=== PATIENT | female | born 1990 | race African-American/Black ===

== ENCOUNTER 2018-04-30 02:27 | Emergency (ER) | payer BC, SELFPAY ==
[2018-04-30 02:32] VITALS: BP 129/94; PULSE 82; RESP 18; TEMP 36.4; O2SAT 99
--- NOTE | 2018-04-30 02:56 | ED.GENADUL ---
Disposition Clinical Impression: Groin abscess Disposition: HOME Condition: Good Instructions: Doxycycline (By mouth), Abscess (ED) Additional Instructions: You may use acetaminophen and/or ibuprofen for pain. Warm compresses to help promote drainage. Take antibiotic as directed. Watch for worsening pain, swelling, redness. Follow-up with primary care at end of week if not better. Return to ED if worse. Prescriptions: Doxycycline Hyclate [Vibramycin] 100 mg PO BID #13 cap Referrals: Primary Care Provider [Outside] Medical Decision Making - Medical Decision Making Patient with a superficial abscess with underlying pain and swelling beneath it. Feels more indurated than fluctuant but given the superficial abscess that is obvious, stab incision with an 11 blade was thought necessary to rule out a deep abscess. Procedure explained to patient. Verbal consent obtained. Female nurse present for exam and for procedure. Area was prepped with Betadine and then was anesthetized with 1% lidocaine with epi. Superficial abscess drained with the injection of the lidocaine. Stab incision with minimal pus returned from deep. Wound culture obtained and sent. No packing as this was just a stab incision. Because of the overlying erythema and the induration underneath will go ahead and cover with doxycycline. test obtained and is negative. Follow-up with primary care at the end of week if not better. Return to ED if worse. History of Present Illness - General Chief complaint: RashLesion Stated complaint: UNKNOWN Time Seen by Provider: 04/30/18 02:55 Source: patient Mode of arrival: ambulatory Limitations: no limitations - History of Present Illness Initial comments: Patient presents to the ED with right groin swelling and pain. Patient states that she started to have some discomfort 2 days ago. She noticed a little pimple there yesterday. It has got larger and is quite painful now. She has difficulty walking. She has had no fever. She has no abdominal pain, nausea, vomiting, diarrhea. She has no urinary symptoms. She has no vaginal discharge or bleeding. - Related Data Medroxyprogesterone Acetate [Depo-Provera] 150 mg IM Q 12 WEEKS #1 vial 10/02/17 Doxycycline Hyclate [Vibramycin] 100 mg PO BID #13 cap 04/30/18 Allergies Allergy/AdvReac Type Severity Reaction Status Date / Time No Known Allergies Allergy Unverified 04/30/18 02:31 Review of Systems Constitutional: denies: chills, fever Gastrointestinal: denies: abdominal pain, nausea, vomiting Skin: change in color, other (swelling). denies: lesions Past Medical History - Past Medical History Medical history: no medical history Surgical history: no surgical history - Social History Smoking status: never smoker General Exam - General Limitations: no limitations General appearance: alert, in no apparent distress - Head Head exam: Present: atraumatic, normocephalic - Neck Neck exam: Present: normal inspection - Extremities Exam Extremities exam: Present: normal inspection, full ROM - Neurological Exam Neurological exam: Present: alert, oriented X3, CN II-XII intact. Absent: motor sensory deficit - Skin Skin exam: Present: warm, dry, other (about a 1 cm diameter swelling beneath the skin with a superficial abscess over it. Erythema surrounding it. No lymph nodes elsewhere.) Course Vital Signs - 24 hr 04/30/18 02:32 Temperature 97.5 F L Pulse 82 Respiratory 18 Rate Blood Pressure 129/94 Pulse Oximetry 99 Procedures - Abscess I/D Consent Obtained: Verbal Consent Site: Other (groin) Side (if applicable): Right Local Anesthetic: Lidocaine 1%, With Epi Technique: Incised with #11 Blade Irrigation: Yes Packing used?: None
[2018-04-30] MEDS: Doxycycline Hyclate 100 MG CAP PO (03:04)
--- NOTE | 2018-05-02 06:37 | NUR.NOTE ---
Nursing Note: Received call from lab reporting wound culture + for MRSA. Dr. Lawson notified and pt is already on Doxycycline which will cover it per MD.
== END 2018-04-30 03:08 | disposition home or self-care (01) ==
PROVIDERS: Emergency Provider Emergency Medicine; PCP Nurse Practitioner Family
DX: L02.214 Cutaneous abscess of groin (principal); B95.62 Methicillin resistant Staphylococcus aureus infection as the cause of diseases classified elsewhere
CPT/HCPCS: 10060; 81025; 87077; 87070; 87186; 87205

== ENCOUNTER 2018-05-27 17:51 | Outpatient (REF) | payer BC, SELFPAY | END 2018-05-27 18:11 | LOC: LBN 17:51 | PROVIDERS: PCP Nurse Practitioner Family; Visit Provider Obstetrics & Gynecology Gynecology | DX: N76.4 Abscess of vulva (principal) | CPT/HCPCS: 87070; 87205 ==

== ENCOUNTER 2018-07-02 11:11 | Emergency (ER) | payer BC, SELFPAY ==
[2018-07-02 11:14] VITALS: BP 137/85; PULSE 89; RESP 18; TEMP 36.7; O2SAT 99
[2018-07-02 11:31] LABS: Bilirubin Negative (Negative); Blood Negative (Negative); Clarity Sl Cloudy; Glucose Negative (Negative); Ketones Negative (Negative); Leukocyte Esterase Negative (Negative); Nitrite Negative (Negative); Urobilinogen 0.2 EU/dL (Up TO 0.2)
--- NOTE | 2018-07-02 11:57 | W.ED.GENAD ---
Discharge Plan Disposition Patient Disposition: HOME Discharge Details Chief Complaint: Abd Prob Clinical Impression: Abdominal pain Primary Care Provider: Shirley Willett ED Provider: Will Guillermo Home Meds and New Rx's Prescriptions: New pantoprazole 20 mg tablet,delayed release (DR/EC) 20 mg PO DAILY Qty: 30 RF: 0 No Action medroxyprogesterone [Depo-Provera] 150 MG/1 ML suspension 150 mg IM Q 12 WEEKS Qty: 1 RF: 3 Discharge Instructions Instructions: Abdominal Pain (ED) Additional Instructions: Please contact your primary care physician to arrange follow-up. Return to the ER for any worsening or new concerning symptoms. Referrals: Shirley Willett, ELECTRONIC MASKING SYSTEM OPERATOR [Primary Care Provider] - Medical Decision Making 28-year-old female here with intermittent diffuse abdominal pain worse postprandially over the past 4 days with associated nausea. Had some left sharp abdominal pain last night. Abdominal exam is benign. Patient is well-appearing. Screening labs reviewed and normal LFTs, no leukocytosis, normal electrolytes. Patient was administered Zofran IV as well as Pepcid IV. She was reassessed and noted significant improvement in her symptoms. Given benign exam and lab studies, and also improvement with medication, I suspect benign etiology. I will prescribe a PPI and have her follow-up with her primary care physician. I reviewed usual and customary discharge instructions with the patient and emphasized the importance of timely follow-up with her primary care physician. Patient verbalized understanding of my discharge instructions and of need for timely follow-up. I did encourage her to return immediately should she have any worsening or new concerning symptoms. HPI General Date/Time Provider Initiated Documentation: 07/02/18 11:41. Limitations to Documentation: no limitations. Information obtained by: patient. HPI Narrative: 28-year-old female here with chief complaint of abdominal pain. Patient notes that over the past 4 days she has had postprandial abdominal discomfort about an hour after eating. Pain is described as discomfort. Pain is localized diffusely. Last night she did have some sharp pain in her left upper abdomen that lasted approximately 1 hour and then resolved. She currently has mild discomfort in her diffuse abdomen. She also notes some nausea. No melena or bright red blood per rectum. No urinary symptoms. Related Data Home Medications Medication Instructions Recorded Confirmed medroxyprogesterone [Depo-Provera] 150 mg IM Q 12 WEEKS #1 vial 10/02/17 06/25/18 pantoprazole 20 mg PO DAILY #30 tab 07/02/18 Previous Rx's Medication Instructions Recorded medroxyprogesterone [Depo-Provera] 150 mg IM Q 12 WEEKS #1 vial 10/02/17 pantoprazole 20 mg PO DAILY #30 tab 07/02/18 Allergies Allergy/AdvReac Type Severity Reaction Status Date / Time No Known Allergies Allergy Verified 06/25/18 14:39 General Stated Complaint: Abd Prob CONSUELO: 3 Review of Systems Review of Systems All systems reviewed & are unremarkable except as noted in HPI and below Gastrointestinal Reports as per HPI and Reports abdominal pain Genitourinary Denies dysuria, Denies pelvic pain and Denies vaginal discharge PFSH Female Reproductive History Menstrual control method: progesterone injection (No menses w/depo) Exam Const General: cooperative, healthy appearing, no acute distress and well developed HENMT Head: normocephalic and atraumatic Mouth: moist mucous membranes Eyes Conjunctivae: normal conjunctivae Sclera: normal sclerae EOM: EOM intact bilaterally Neck Neck: trachea midline and supple Resp Auscultation: clear to auscultation bilaterally, no rales, no rhonchi and no wheezes Cardio Jugular venous pressure: no JVD Rate: regular rate and not tachycardic Rhythm: regular rhythm GI Palpation: soft, not firm, no guarding, no hepatosplenomegaly, not rigid and nontender (upper abdomen ) Skin General skin exam: no rashes or lesions noted Neuro General: alert, awake, oriented x3 and tone normal Extrem General: no edema Psych Appearance: grossly normal Mental Status: mental status grossly normal Speech and Movement: speech and movement normal Course Vital Signs Temperature 36.7 C 07/02/18 11:14 Pulse 89 07/02/18 11:14 Respiratory Rate 18 07/02/18 11:14 Blood Pressure 137/85 07/02/18 11:14 Pulse Oximetry 99 07/02/18 11:14 Temperature 36.7 C 07/02/18 11:14 Temperature Source Temporal Artery Scan 07/02/18 11:14 Pulse 89 07/02/18 11:14 Respiratory Rate 18 07/02/18 11:14 Respiratory Effort 07/02/18 11:17 Blood Pressure 137/85 07/02/18 11:14 Blood Pressure Position Sitting 07/02/18 11:14 Pulse Oximetry 99 07/02/18 11:14 Oxygen Delivery Method Room Air 07/02/18 11:14 Oxygen Flow Rate 0 07/02/18 11:14 Pain Level 5 07/02/18 11:14 Lab/Test Results Lab/Test Results: Laboratory Tests Range/Units 07/02/18 11:25 Urine Color (Yellow) Yellow Urine Clarity Sl cloudy Urine pH (5-8) 7.0 Ur Specific [place] (1.005-1.025) 1.020 Urine Protein (Negative) mg/dL Negative Urine Ketones (Negative) mg/dL Negative Urine Blood (Negative) Negative Urine Nitrite (Negative) Negative Urine Bilirubin (Negative) Negative Urine Urobilinogen (Up TO 0.2) EU/dL 0.2 Ur Leukocyte Esterase (Negative) Negative Urine Glucose (Negative) mg/dL Negative POC- Test(urine) Negative
[2018-07-02 12:07] LABS: Abs Immature Grans 0.01 k/cumm (0.0-0.09); Absolute Basophil Count 0.02 k/cumm (0.0-0.2); Absolute Lymphocyte Count 2.54 k/cumm (1.2-3.4); Absolute Monocyte Count 0.66 k/cumm (0.11-0.7); Absolute Neutrophil Count 2.83 k/cumm (1.2-6.7); Basophils % 0.3; Eosinophils % 6.2; HCT 41.3 % (36.0-46.0); HGB 14.2 g/dL (12.0-15.5); Immature Grans % 0.2; Lymphocytes % 39.3; Mean Corp. HGB Concentration 34.4 g/dL (32.0-36.0); Mean Corpuscular Hemoglobin 31.4 pg (27.0-33.0); Mean Corpuscular Volume 91.4 fL (80-95); Mean Platelet Volume 9.4 fL (8.0-11.0); Monocytes % 10.2; Neutrophils % 43.8; Platelet Count 315 x1000/uL (130-400); RBC 4.52 m/cumm (4.00-5.20); RBC Distribution Width 12.3 % (11.7-14.6); White Blood Cell Count 6.46 k/cumm (4.4-10.8)
[2018-07-02] MEDS: FAMOTIDINE 20 MG/50 ML BAG 100 MG IVPB (12:08)
[2018-07-02] MEDS: Ondansetron 4 MG/2 ML VIAL IVP (12:08)
[2018-07-02] MEDS: Lactated Ringers 1,000 ML 1000 ML IV (12:08)
[2018-07-02 12:16] LABS: Lipase 125 U/L (73-393)
[2018-07-02 12:21] LABS: ALT 28 U/L (12-78); AST 18 U/L (15-37); Alkaline Phosphatase 85 U/L (46-116); Anion Gap 10.5 mmol/L (3-11); BUN 8 mg/dL (7-18); Bilirubin, Total 0.5 mg/dL (0.2-1.0); CO2 24.5 mmol/L (21.0-32.0); CREATININE 0.71 mg/dL (0.55-1.02); Calcium 9.8 mg/dL (8.5-10.1); Chloride 104 mmol/L (98-107); Glucose 97 mg/dL (70-100); Potassium 3.9 mmol/L (3.5-5.1); Sodium 139 mmol/L (136-145); Total Protein 8.6 g/dL (6.4-8.2)
--- NOTE | 2018-07-02 15:05 | ED.GENADUL_ITS ---
Discharge Plan Disposition Patient Disposition: HOME Discharge Details Chief Complaint: Abd Prob Clinical Impression: Abdominal pain Primary Care Provider: Shirley Willett ED Provider: Will Guillermo Home Meds and New Rx's Prescriptions: New pantoprazole 20 mg tablet,delayed release (DR/EC) 20 mg PO DAILY Qty: 30 RF: 0 No Action medroxyprogesterone [Depo-Provera] 150 MG/1 ML suspension 150 mg IM Q 12 WEEKS Qty: 1 RF: 3 Discharge Instructions Instructions: Abdominal Pain (ED) Additional Instructions: Please contact your primary care physician to arrange follow-up. Return to the ER for any worsening or new concerning symptoms. Referrals: Shirley Willett, BAKER OPERATOR AUTOMATIC [Primary Care Provider] - Medical Decision Making 28-year-old female here with intermittent diffuse abdominal pain worse postprandially over the past 4 days with associated nausea. Had some left sharp abdominal pain last night. Abdominal exam is benign. Patient is well-appearing. Screening labs reviewed and normal LFTs, no leukocytosis, normal electrolytes. Patient was administered Zofran IV as well as Pepcid IV. She was reassessed and noted significant improvement in her symptoms. Given benign exam and lab studies, and also improvement with medication, I suspect benign etiology. I will prescribe a PPI and have her follow-up with her primary care physician. I reviewed usual and customary discharge instructions with the patient and emphasized the importance of timely follow-up with her primary care physician. Patient verbalized understanding of my discharge instructions and of need for timely follow-up. I did encourage her to return immediately should she have any worsening or new concerning symptoms. HPI General Date/Time Provider Initiated Documentation: 07/02/18 11:41 . Limitations to Documentation: no limitations . Information obtained by: patient . HPI Narrative: 28-year-old female here with chief complaint of abdominal pain. Patient notes that over the past 4 days she has had postprandial abdominal discomfort about an hour after eating. Pain is described as discomfort. Pain is localized diffusely. Last night she did have some sharp pain in her left upper abdomen that lasted approximately 1 hour and then resolved. She currently has mild discomfort in her diffuse abdomen. She also notes some nausea. No melena or bright red blood per rectum. No urinary symptoms. Related Data Home Medications Medication Instructions Recorded Confirmed medroxyprogesterone [Depo-Provera] 150 mg IM Q 12 WEEKS #1 vial 10/02/17 pantoprazole 20 mg PO DAILY #30 tab 07/02/18 Previous Rx's Medication Instructions Recorded medroxyprogesterone [Depo-Provera] 150 mg IM Q 12 WEEKS #1 vial 10/02/17 pantoprazole 20 mg PO DAILY #30 tab 07/02/18 Allergies Allergy/AdvReac Type Severity Reaction Status Date / Time No Known Allergies Allergy Verified 06/25/18 14:39 General Stated Complaint: Abd Prob CONSUELO: 3 Review of Systems Review of Systems All systems reviewed & are unremarkable except as noted in HPI and below Gastrointestinal Reports as per HPI and Reports abdominal pain Genitourinary Denies dysuria, Denies pelvic pain and Denies vaginal discharge PFSH Female Reproductive History Menstrual control method: progesterone injection (No menses w/depo) Exam Const General: cooperative, healthy appearing, no acute distress and well developed HENMT Head: normocephalic and atraumatic Mouth: moist mucous membranes Eyes Conjunctivae: normal conjunctivae Sclera: normal sclerae EOM: EOM intact bilaterally Neck Neck: trachea midline and supple Resp Auscultation: clear to auscultation bilaterally, no rales, no rhonchi and no wheezes Cardio Jugular venous pressure: no JVD Rate: regular rate and not tachycardic Rhythm: regular rhythm GI Palpation: soft, not firm, no guarding, no hepatosplenomegaly, not rigid and nontender (upper abdomen ) Skin General skin exam: no rashes or lesions noted Neuro General: alert, awake, oriented x3 and tone normal Extrem General: no edema Psych Appearance: grossly normal Mental Status: mental status grossly normal Speech and Movement: speech and movement normal Course Vital Signs Temperature 36.7 C 07/02/18 11:14 Pulse 89 07/02/18 11:14 Respiratory Rate 18 07/02/18 11:14 Blood Pressure 137/85 07/02/18 11:14 Pulse Oximetry 99 07/02/18 11:14 Temperature 36.7 C 07/02/18 11:14 Temperature Source Temporal Artery Scan 07/02/18 11:14 Pulse 89 07/02/18 11:14 Respiratory Rate 18 07/02/18 11:14 Respiratory Effort 07/02/18 11:17 Blood Pressure 137/85 07/02/18 11:14 Blood Pressure Position Sitting 07/02/18 11:14 Pulse Oximetry 99 07/02/18 11:14 Oxygen Delivery Method Room Air 07/02/18 11:14 Oxygen Flow Rate 0 07/02/18 11:14 Pain Level 5 07/02/18 11:14 Lab/Test Results Lab/Test Results: Laboratory Tests Range/Units 07/02/18 11:25 Urine Color (Yellow) Yellow Urine Clarity Sl cloudy Urine pH (5-8) 7.0 Ur Specific [place] (1.005-1.025) 1.020 Urine Protein (Negative) mg/dL Negative Urine Ketones (Negative) mg/dL Negative Urine Blood (Negative) Negative Urine Nitrite (Negative) Negative Urine Bilirubin (Negative) Negative Urine Urobilinogen (Up TO 0.2) EU/dL 0.2 Ur Leukocyte Esterase (Negative) Negative Urine Glucose (Negative) mg/dL Negative POC- Test(urine) Negative
[2018-07-02 15:14] VITALS: BP 138/80; PULSE 77; RESP 16; TEMP 36.8; O2SAT 96
== END 2018-07-02 15:16 | disposition home or self-care (01) ==
PROVIDERS: Emergency Provider Student in an Organized Health Care Education/Training Program; PCP Nurse Practitioner Family
DX: R10.12 Left upper quadrant pain (principal); R11.0 Nausea
CPT/HCPCS: 36415; 80053; 81025; 83690; 96361; 96365; 96375; 99284; 81003; 85025; J2405

== ENCOUNTER 2018-12-13 12:18 | Outpatient (REF) | payer BC, SELFPAY ==
--- NOTE | 2018-12-13 11:00 | PAPFT_PTH ---
PATIENT: Meghna Martinez LOC: N [id number]#:[id number] AGE/SX: 28/F ROOM: RE12/13/[address]: MOON Castro : 1990 BED: DIS: 12/13/2018 SPEC #: [id number] RECD: 12/13/18 13:05 STATUS: LISETH REKuldeep #: [id number] JOANNE: 12/13/18 11:[address]: Shirley Willett DEPT: [facility] [place] Cytology RECD BY: Azucena Mars ENTERED: 12/13/18 13:05 SP TYPE: PAPFT [place] DR: None Tissues: 1 - CX/ENDOCX FOR PAP SMEARS Procedures: PAP THIN PREP/UVM Screening Comments: [id number]
== END 2018-12-13 12:38 ==
LOC: LBN 12:18
PROVIDERS: Visit Provider Nurse Practitioner Family
DX: Z12.4 Encounter for screening for malignant neoplasm of cervix (principal)
CPT/HCPCS: 88142

== ENCOUNTER 2019-02-11 14:54 | Outpatient (REF) | payer BC, SELFPAY ==
[2019-02-13 13:18] LABS: Chlamydia Result Negative; GC Result Negative; Specimen Description CERVIX
== END 2019-02-11 15:14 ==
LOC: LBN 14:54
PROVIDERS: Visit Provider Nurse Practitioner Family
DX: R35.0 Frequency of micturition (principal); Z11.3 Encounter for screening for infections with a predominantly sexual mode of transmission
CPT/HCPCS: 87491; 87591; 87086

== ENCOUNTER 2019-05-06 06:49 | Emergency (ER) | payer BC, SELFPAY ==
[2019-05-06 06:53] VITALS: BP 154/99; PULSE 87; TEMP 36.4; O2SAT 100
--- NOTE | 2019-05-06 07:05 | ED.GENADUL_ITS ---
Discharge Plan Disposition Patient Disposition: HOME Condition: Stable Discharge Details Chief Complaint: Dizzy/Sync Clinical Impression: Nausea Primary Care Provider: Marcie Rose ED Provider: Washington Duong Home Meds and New Rx's Prescriptions: New ondansetron 4 mg tablet,disintegrating 4 mg PO Q8H PRN (Reason: nausea and vomiting) Qty: 30 RF: 0 Continued medroxyprogesterone [Depo-Provera] 150 mg/mL suspension 150 mg IM Q 12 WEEKS Qty: 1 RF: 3 zolpidem 5 mg tablet 5 mg PO QHS PRNRF: 0 Discharge Instructions Instructions: Acute Nausea and Vomiting (ED) Additional Instructions: drink fluids to stay hydrated if symptoms continue in 2 days follow up with your primary care on Sunday as scheduled if you feel more ill, have severe abdominal pain, fevers or persistent vomit return to the emergency department Stand Alone Forms: Work Release Medical Decision Making 28 yo female who denies chronic medical problems comes in with nausea. 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 She denies chest pain, sob, abdominal pain, fevers. She has been drinking fluids without difficulty. She is in no distress on exam, negative poc hcg, no abdominal tenderness in any location. she did start zolpidem a month or so ago and feel unlikely this is the cause of her symptoms. i suspect either early gastroenteritis vs food illness and will improve with time. Given lack of abodminal tenderness and reassuring exam otherwise feel unlikely surgical pathology or pancreatitis or other emergent medical process. We did discuss performing labs +/- imaging vs d/c and return if worsening and shared decision making was made to try outpatient management and return if worsening. Differential Diagnosis gastroenteritis, medication side effect, food illness HPI General Mode of arrival: ambulatory . Date/Time Provider Initiated Documentation: 05/06/19 06:52 . Limitations to Documentation: no limitations . Information obtained by: patient . History of Present Illness 28 year old F presents to the emergency department with the chief complaint of nausea, described as moderate, Patient started experiencing this day(s) (1) and it has been constant. No relieving factors improve symptom(s), No exacerbating factors reported . Patient did receive the following treatments prior to arrival, none Related Data Home Medications Medication Instructions Recorded Confirmed medroxyprogesterone 150 mg/mL 150 mg IM Q 12 WEEKS #1 vial 09/20/18 03/14/19 intramuscular suspension zolpidem 5 mg tablet 5 mg PO QHS PRN 12/13/18 03/14/19 ondansetron 4 mg PO Q8H PRN #30 tab 05/06/19 Previous Rx's Medication Instructions Recorded medroxyprogesterone 150 mg/mL 150 mg IM Q 12 WEEKS #1 vial 09/20/18 intramuscular suspension ondansetron 4 mg PO Q8H PRN #30 tab 05/06/19 Allergies Allergy/AdvReac Type Severity Reaction Status Date / Time No Known Allergies Allergy Verified 03/14/19 11:32 General Stated Complaint: Dizzy/Sync CONSUELO: 4 Review of Systems Review of Systems All systems reviewed & are unremarkable except as noted in HPI and below Constitutional Denies chills, Denies fever(s) and Denies weakness Cardiovascular Denies chest pain and Denies dyspnea Respiratory Denies cough and Denies dyspnea Gastrointestinal Denies abdominal pain Integumentary/Breasts Denies rash Neurologic Denies weakness PFSH Social History Smoking/Tobacco Use Status: Never Second Hand Exposure: Yes Alcohol Intake: current Alcohol Intake frequency: a few times a month Drug use: Never Substance use type: does not use Adopted: No Foster care: No Household members: significant other What is your relationship status?: living with partner Panel score (0-1 are the most socially isolated patients): 1 What type of physical activity do you participate in: walking Duration: 30-45 minutes/day Frequency: other Details: 2-3 X MONTH Nesha/Ad[employer]ist: [employer] Seatbelt use: always Do you feel safe at home: Yes Do you feel safe in your relationship?: Yes Female Reproductive History Menstrual control method: progesterone injection (No menses w/depo) History History 0 Para Hx # Term Pregnancies Multiple births Hx # Pregnancies Ectopic pregnancies AB induced Hx Number of Living Children AB spontaneous Exam Const General: no acute distress Orientation: alert HENMT Head: normal to inspection Ears: external ears normal General nose exam: external nose normal Mouth: moist mucous membranes Eyes General: appearance normal, both eyes and all related structures Neck Neck: normal visual inspection Resp Effort & Inspection: normal respiratory effort and able to speak in complete sentences Cardio Rate: regular rate GI Palpation: soft and nontender Skin General skin exam: no rashes or lesions noted Neuro General: alert and oriented x3 Extrem General: normal to inspection Psych Mental Status: mental status grossly normal Course Vital Signs Temperature 36.4 C L 05/06/19 06:53 Pulse 87 05/06/19 06:53 Blood Pressure 154/99 H 05/06/19 06:53 Pulse Oximetry 100 05/06/19 06:53 Temperature 36.4 C L 05/06/19 06:53 Temperature Source Temporal Artery Scan 05/06/19 06:53 Pulse 87 05/06/19 06:53 Blood Pressure 154/99 H 05/06/19 06:53 Blood Pressure Position Sitting 05/06/19 06:53 Pulse Oximetry 100 05/06/19 06:53 Oxygen Delivery Method Room Air 05/06/19 06:53 Oxygen Flow Rate 0 05/06/19 06:53 Pain Level 0 05/06/19 06:53 Lab/Test Results Lab/Test Results: POC- Test(urine) Negative
[2019-05-06 07:13] VITALS: BP 154/99; PULSE 87; RESP 18; TEMP 36.4; O2SAT 100
== END 2019-05-06 07:12 | disposition home or self-care (01) ==
PROVIDERS: Emergency Provider Emergency Medicine; PCP Nurse Practitioner Family
DX: R11.0 Nausea (principal)
CPT/HCPCS: 81025; 99283

== ENCOUNTER 2019-05-11 21:39 | Emergency (ER) | payer BC, SELFPAY ==
[2019-05-11 21:43] VITALS: BP 155/107; PULSE 95; RESP 16; TEMP 36.7; O2SAT 100
--- NOTE | 2019-05-11 21:55 | W.ED.GENAD ---
Discharge Plan Disposition Patient Disposition: HOME Condition: Improving Discharge Details Chief Complaint: Abd Prob Clinical Impression: Vomiting, Abdominal pain Primary Care Provider: Marcie Rose ED Provider: Ximena Bautista Home Meds and New Rx's Prescriptions: Continued medroxyprogesterone [Depo-Provera] 150 mg/mL suspension 150 mg IM Q 12 WEEKS Qty: 1 RF: 3 zolpidem 5 mg tablet 5 mg PO QHS PRNRF: 0 ondansetron 4 mg tablet,disintegrating 4 mg PO Q8H PRN (Reason: nausea and vomiting) Qty: 30 RF: 0 Discharge Instructions Instructions: Acute Nausea and Vomiting (ED), Abdominal Pain (ED) Additional Instructions: Take the zofran that you have at home as needed and directed for nausea or vomiting. Alternate Tylenol and Motrin as needed and directed for pain. Follow-up with your primary care doctor next week for reevaluation. Return immediately to the emergency department with any worsening or new concerning symptoms. Stand Alone Forms: Work Release Discharge Data Discharge Date/Time-TO BE ENTERED AT DEPARTURE: 05/11/19 23:33 Discharge Physician: Ximena Bautista Medical Decision Making 6 -- 28-year-old female with no significant past medical history who presents with abdominal pain and nausea with 3 episodes of vomiting since last week. She was seen here several days ago for the same complaint and had a reassuring exam and had no labs or imaging done at that time and was discharged with Zofran. She presents today with persistent pain. She appears nontoxic. She is afebrile. Her abdomen is soft but tender in the right upper quadrant and across her lower abdomen. No rebound, rigidity or guarding. Differential diagnosis includes gastroenteritis, appendicitis, cholecystitis, ovarian cyst. She has no previous history of abdominal surgeries, so doubt small bowel obstruction. She is only had minimal spotting, so unsure if this is related to her symptoms, but could also include fibroids or endometriosis. As she has only minimal spotting, do not see an indication for pelvic exam. test negative. As this is her second visit within the past week for similar symptoms and she has abdominal tenderness, will place an IV, give bolus IV fluids, dose of Toradol, labs and CT imaging. 5575 --labs and imaging reviewed and unremarkable. Normal white blood cell count, electrolytes, lipase and urinalysis. Patient states she feels much better and feels good to go home. She requested a work note for tonight. She is advised to continue her Zofran as needed. She is advised to follow-up with her primary care doctor for reevaluation and to return here at any time if worse. Medical Records Medical records reviewed: Yes I reviewed the patient's medical records. Imaging Data Radiologic Study: Radiologist's impression: CT Abdomen and Pelvis With Contrast EXAM DATE/TIME: 05/11/2019 10:04 PM CLINICAL HISTORY: 28 years old, female; Localized; Patient HX: Lower abdominal pain; Additional info: R/O appy, allyson, sbo, ovarian cyst TECHNIQUE: Imaging protocol: Computed tomography of the abdo d pelvis with intravenous contrast. Radiation optimization: All CT scans at this facility use at least one of these dose optimization techniques: automated exposure control; mA and/or kV adjustment per patient size (includes targeted exams where dose is matched to clinical indication); or iterative reconstruction. Contrast material: OMNIPAQUE 350; Contrast volume: 80 ml; Contrast route: IV; COMPARISON: CT ABD PELVIS WITH CONTRAST 12/13/2017 3:58 AM FINDINGS: Liver: No suspicious lesions. Gallbladder and bile ducts: No acute or concerning findings. Pancreas: Unremarkable. No ductal dilation. Spleen: No suspicious lesions. Adrenals: No suspicious nodule. Kidneys and ureters: No hydro. No suspicious lesions. Stomach and bowel: No inflammed or dilated loops. Appendix: No evidence of appendicitis. Intraperitoneal space: No free air. No significant fluid collection. Vasculature: Unremarkable. No acute findings Lymph nodes: Unremarkable. Bladder: Unremarkable as visualized. Reproductive: Unremarkable as visualized. Bones/joints: Unremarkable. No acute fracture. Soft tissues: Unremarkable. IMPRESSION: No acute findings. Lab Data Lab results reviewed: Yes I reviewed the patient's lab results. Laboratory Tests Range/Units 05/11/19 05/11/19 05/11/19 21:55 22:13 22:13 WBC (4.4-10.8) k/cumm 7.67 RBC (4.00-5.20) m/cumm 4.13 Hgb (12.0-15.5) g/dL 12.8 Hct (36.0-46.0) % 37.2 MCV (80-95) fL 90.1 MCH (27.0-33.0) pg 31.0 MCHC (32.0-36.0) g/dL 34.4 RDW (11.7-14.6) % 12.1 Plt Count (130-400) x1000/uL 346 MPV (8.0-11.0) fL 9.8 Immature Gran % 0.3 Neutrophils % 41.0 Lymphocytes % 41.7 Monocytes % 10.7 Eosinophils % 6.0 Basophils % 0.3 Absolute Neutrophils (1.2-6.7) k/cumm 3.15 Absolute Lymphocytes (1.2-3.4) k/cumm 3.20 Absolute Monocytes (0.11-0.7) k/cumm 0.82 H Absolute Eosinophils (0.0-0.7) k/cumm 0.46 Absolute Basophils (0.0-0.2) k/cumm 0.02 Sodium (136-145) mmol/L 140 Potassium (3.5-5.1) mmol/L 4.1 Chloride (98-107) mmol/L 107 Carbon Dioxide (21.0-32.0) mmol/L 23.1 Anion Gap (3-11) mmol/L 9.9 BUN (7-18) mg/dL 10 Creatinine (0.55-1.02) mg/dL 0.80 Estimated GFR/1.73 m2 (mL/min/1.73m2) >= 60.00 Glucose (70-100) mg/dL 97 Calcium (8.5-10.1) mg/dL 8.6 Total Bilirubin (0.2-1.0) mg/dL 0.2 AST (15-37) U/L 23 ALT (14-59) U/L 26 Alkaline Phosphatase (46-116) U/L 79 Total Protein (6.4-8.2) g/dL 7.3 Albumin (3.4-5.0) g/dL 3.4 Lipase (73-393) U/L 90 Urine Color (Yellow) Yellow Urine Clarity (Clear) Clear Urine pH (5-8) 6.0 Ur Specific [place] (1.005-1.025) 1.020 Urine Protein (Negative) mg/dL Negative Urine Ketones (Negative) mg/dL Negative Urine Blood (Negative) Trace-lysed H Urine Nitrite (Negative) Negative Urine Bilirubin (Negative) Negative Urine Urobilinogen (Up TO 0.2) EU/dL 0.2 Ur Leukocyte Esterase (Negative) Negative Urine RBC (0-2) Negative Urine WBC (0-5) HPF 0-2 Ur Epithelial Cells (Negative) HPF Few Urine Crystals (Negative) HPF Negative Urine Bacteria (Negative) HPF Negative Urine Casts (Negative) LPF Negative Urine Mucus (Negative) Negative Urine Other (Negative) Negative Ur Culture Indicated? No Urine Glucose (Negative) mg/dL Negative HPI General Mode of arrival: ambulatory. Date/Time Provider Initiated Documentation: 05/11/19 21:53. Limitations to Documentation: no limitations. Information obtained by: patient. HPI Narrative: Patient is a 28-year-old female with no significant past medical history who presents with abdominal pain and nausea with vomiting since last week. Patient was seen here a few days ago for the same complaint and had a reassuring abdominal exam per provider and labs and imaging were not done after discussion with patient and she was discharged home with [facility]. She presents today with persistent pain. She states she has vomited 3 times total over the past week. She admits to one episode of loose stool today but denies any bleeding. She is on the Depakote injection for the past year and states she does not get her period. She also admits to some minimal vaginal bleeding today and states she has not had that since she started the Depakote injection. She denies any fever, urinary symptoms, back pain, vaginal discharge, recent antibiotics or recent travel. Related Data Home Medications Medication Instructions Recorded Confirmed medroxyprogesterone 150 mg/mL 150 mg IM Q 12 WEEKS #1 vial 09/20/18 05/11/19 intramuscular suspension zolpidem 5 mg tablet 5 mg PO QHS PRN 12/13/18 05/11/19 ondansetron 4 mg PO Q8H PRN #30 tab 05/06/19 05/11/19 Previous Rx's Medication Instructions Recorded medroxyprogesterone 150 mg/mL 150 mg IM Q 12 WEEKS #1 vial 09/20/18 intramuscular suspension ondansetron 4 mg PO Q8H PRN #30 tab 05/06/19 Allergies Allergy/AdvReac Type Severity Reaction Status Date / Time No Known Allergies Allergy Verified 05/11/19 21:46 General Stated Complaint: Abd Prob CONSUELO: 3 Review of Systems Review of Systems All systems reviewed & are unremarkable except as noted in HPI and below Constitutional Reports as per HPI, Denies chills and Denies fever(s) Eyes Denies blurry vision ENT Denies dizziness, Denies sore throat and Denies throat swelling Cardiovascular Denies chest pain and Denies dyspnea Respiratory Denies cough and Denies dyspnea Gastrointestinal Reports abdominal pain, Denies diarrhea and Reports vomiting Genitourinary Denies hematuria and Denies dysuria Musculoskeletal Denies back pain and Denies numbness Integumentary/Breasts Denies lesions and Denies rash Neurologic Denies dizziness, Denies focal weakness and Denies numbness Allergic/Immunologic Denies throat swelling [facility] Medical History Depot contraception (Acute) DepoProvera inj q 3mo. MRSA (methicillin resistant Staphylococcus aureus) infection (Acute) Vulvar abscess 04/2018. Rx with Bactrim. Family History Mother Essential hypertension Hyperlipidemia Maternal Aunt Breast cancer at 52 Social History Smoking/Tobacco Use Status: Never Second Hand Exposure: Yes Alcohol Intake: current Alcohol Intake frequency: a few times a month Alcohol type: wine Drug use: Never Substance use type: does not use Adopted: No Foster care: No Household members: significant other What is your relationship status?: living with partner Panel score (0-1 are the most socially isolated patients): 1 What type of physical activity do you participate in: walking Duration: 30-45 minutes/day Frequency: other Details: 2-3 X MONTH Nesha/Anglican: CHRISTIANITY Seatbelt use: always Do you feel safe at home: Yes Do you feel safe in your relationship?: Yes Female Reproductive History Menstrual control method: progesterone injection (No menses w/depo) History History 0 Para Hx # Term Pregnancies Multiple births Hx # Pregnancies Ectopic pregnancies AB induced Hx Number of Living Children AB spontaneous Exam Const General: cooperative, healthy appearing and no acute distress HENMT Head: normal to inspection Face and sinus: normal facial exam Eyes General: appearance normal, both eyes and all related structures EOM: EOM intact bilaterally Neck Neck: normal visual inspection and No submandibular swelling Lymphatic: no lymphadenopathy noted Chest Chest: normal inspection of the chest and no tenderness Resp Effort & Inspection: normal respiratory effort and able to speak in complete sentences Auscultation: clear to auscultation bilaterally Cardio Rate: regular rate Rhythm: regular rhythm GI Inspection: normal to inspection and obesity Palpation: soft, not firm, not rigid and tender in the LLQ, in the RLQ, in the RUQ and suprapubicly Auscultation: hypoactive bowel sounds Back/Spine/Pelvis Back: no CVA tenderness Thoracic/Lumbar Spine: thoracic and lumbar spine normal to inspection Pelvis: no pain with anterior-posterior compression Skin General skin exam: no rashes or lesions noted Neuro General: alert, awake and oriented x3 Cognition: normal cognition Speech: speech normal Motor: muscle tone normal throughout Sensory Exam: no sensory deficits noted Extrem General: normal to inspection, full ROM, normal capillary refill, no calf tenderness bilaterally and no edema Psych Appearance: grossly normal Mental Status: mental status grossly normal Speech and Movement: speech and movement normal Affect: normal affect Course Vital Signs Temperature 98.1 F 05/11/19 21:43 Pulse 95 H 05/11/19 21:43 Respiratory Rate 16 05/11/19 21:43 Blood Pressure 155/107 H 05/11/19 21:43 Pulse Oximetry 100 05/11/19 21:43 Temperature 98.1 F 05/11/19 21:43 Pulse 95 H 05/11/19 21:43 Respiratory Rate 16 05/11/19 21:43 Respiratory Effort Non-Labored 05/11/19 21:47 Blood Pressure 155/107 H 05/11/19 21:43 Pulse Oximetry 100 05/11/19 21:43 Pain Level 4 05/11/19 21:43
[2019-05-11 22:06] LABS: Bilirubin Negative (Negative); Blood Trace-lysed (Negative); Clarity Clear (Clear); Glucose Negative (Negative); Ketones Negative (Negative); Leukocyte Esterase Negative (Negative); Nitrite Negative (Negative); Urobilinogen 0.2 EU/dL (Up TO 0.2)
[2019-05-11] MEDS: Normal Saline 1,000 ML 1000 ML IV (22:18)
[2019-05-11] MEDS: Ketorolac 30 MG/ML VIAL IVP (22:18)
[2019-05-11] MEDS: Omnipaque 350 MG/ML 100 ML BTL IJ (22:27)
[2019-05-11 22:29] LABS: Bacteria Negative HPF (Negative); C & S Indicated? No; Casts Negative LPF (Negative); Crystals Negative HPF (Negative); Epithelial Cells Few HPF (Negative); Mucus Negative (Negative); Other Cells Negative (Negative); RBC Negative (0-2); WBC 0-2 HPF (0-5)
[2019-05-11 22:35] LABS: Abs Immature Grans 0.02 k/cumm (0.0-0.09); Absolute Basophil Count 0.02 k/cumm (0.0-0.2); Absolute Eosinophil Count 0.46 k/cumm (0.0-0.7); Absolute Monocyte Count 0.82 k/cumm (0.11-0.7); Absolute Neutrophil Count 3.15 k/cumm (1.2-6.7); Basophils % 0.3; HCT 37.2 % (36.0-46.0); HGB 12.8 g/dL (12.0-15.5); Immature Grans % 0.3; Lymphocytes % 41.7; Mean Corp. HGB Concentration 34.4 g/dL (32.0-36.0); Mean Corpuscular Volume 90.1 fL (80-95); Mean Platelet Volume 9.8 fL (8.0-11.0); Monocytes % 10.7; Platelet Count 346 x1000/uL (130-400); RBC 4.13 m/cumm (4.00-5.20); RBC Distribution Width 12.1 % (11.7-14.6); White Blood Cell Count 7.67 k/cumm (4.4-10.8)
[2019-05-11 22:51] LABS: ALT 26 U/L (14-59); AST 23 U/L (15-37); Albumin 3.4 g/dL (3.4-5.0); Alkaline Phosphatase 79 U/L (46-116); Anion Gap 9.9 mmol/L (3-11); BUN 10 mg/dL (7-18); Bilirubin, Total 0.2 mg/dL (0.2-1.0); CO2 23.1 mmol/L (21.0-32.0); Calcium 8.6 mg/dL (8.5-10.1); Chloride 107 mmol/L (98-107); Glucose 97 mg/dL (70-100); Lipase 90 U/L (73-393); Potassium 4.1 mmol/L (3.5-5.1); Sodium 140 mmol/L (136-145); Total Protein 7.3 g/dL (6.4-8.2)
--- NOTE | 2019-05-11 22:55 | DI.CT_ITS ---
SYMPTOMS/DIAGNOSIS: LOWER ABDOMINAL PAIN X 1 WEEK, ? APPENDICITIS/CHOLECYSTITIS/SMALL BOWEL OBSTRUCTION/OVARIAN CYST CT OF THE ABDOMEN AND PELVIS: Comparison is made with December,. The lung bases are clear. The heart size is normal. The liver, gallbladder, spleen, kidneys, pancreas and adrenals appear normal. The appendix projects posteriorly in the right lower quadrant and appears normal. The uterus, ovaries and bladder appear normal. No bowel dilatation or inflammatory changes are seen. There is no free air or free fluid. IMPRESSION: Negative CT of the abdomen and pelvis. No evidence of appendicitis or other acute abnormality.
--- NOTE | 2019-05-11 23:01 | DI.VRAD_ITS ---
EXAM: CT Abdomen and Pelvis With Contrast EXAM DATE/TIME: 05/11/2019 10:04 PM CLINICAL HISTORY: 28 years old, female; Localized; Patient HX: Lower abdominal pain; Additional info: R/O appy, allyson, sbo, ovarian cyst TECHNIQUE: Imaging protocol: Computed tomography of the abdomen and pelvis with intravenous contrast. Radiation optimization: All CT scans at this facility use at least one of these dose optimization techniques: automated exposure control; mA and/or kV adjustment per patient size (includes targeted exams where dose is matched to clinical indication); or iterative reconstruction. Contrast material: OMNIPAQUE 350; Contrast volume: 80 ml; Contrast route: IV; COMPARISON: CT ABD PELVIS WITH CONTRAST 12/13/2017 3:58 AM FINDINGS: Liver: No suspicious lesions. Gallbladder and bile ducts: No acute or concerning findings. Pancreas: Unremarkable. No ductal dilation. Spleen: No suspicious lesions. Adrenals: No suspicious nodule. Kidneys and ureters: No hydro. No suspicious lesions. Stomach and bowel: No inflammed or dilated loops. Appendix: No evidence of appendicitis. Intraperitoneal space: No free air. No significant fluid collection. Vasculature: Unremarkable. No acute findings Lymph nodes: Unremarkable. Bladder: Unremarkable as visualized. Reproductive: Unremarkable as visualized. Bones/joints: Unremarkable. No acute fracture. Soft tissues: Unremarkable. IMPRESSION: No acute findings. Dictated and Authenticated by: Brent Santana MD. Ordering:JEAN PIERRE Bueno MD
[2019-05-11 23:28] VITALS: BP 128/80; PULSE 87; RESP 16; O2SAT 100
== END 2019-05-11 23:33 | disposition home or self-care (01) ==
PROVIDERS: Emergency Provider Physician Assistant; PCP Nurse Practitioner Family
DX: R10.9 Unspecified abdominal pain (principal); R11.10 Vomiting, unspecified
CPT/HCPCS: 36415; 80053; 81025; 83690; 96361; 96374; 99285; 74177; 81003; 81015; 85025; 99284; J1885; J3490

== ENCOUNTER 2020-02-23 02:17 | Outpatient (CLI) | payer BC, SELFPAY ==
[2020-02-23 19:46] LABS: HCG Quant, Pregnancy 60801 mIU/mL (1-3)
== END 2020-02-23 02:37 ==
PROVIDERS: PCP Nurse Practitioner Family; Visit Provider Advanced Practice Midwife
DX: O20.9 Hemorrhage in early pregnancy, unspecified (principal)
CPT/HCPCS: 36415; 86900; 86901; 84702

== ENCOUNTER 2023-02-15 21:33 | Emergency (ER) | payer BC, MEDICAID, SELFPAY ==
[2023-02-15 21:41] VITALS: BP 155/106; PULSE 77; RESP 16; TEMP 36.4; O2SAT 100
--- NOTE | 2023-02-15 22:00 | DI.CT_ITS ---
Exam(s) CT CHEST PE CTA EXAM: CT CHEST PE CTA CLINICAL HISTORY: 2 months cough, -CXR, r/o PE/infxn/mass. TECHNIQUE: Imaging Protocol: Axial CT angiography was performed with multi-slice acquisition and mu lti-planar and/or 3D reconstructions. CONTRAST MATERIAL: Intravenous: Omnipaque 350 contrast volume:100 mL COMPARISON: CT CT ABDOMEN PELVIS W from 05/11/2019 FINDINGS: Tracheobronchial tree: Patent where visualized. Pulmonary parenchyma: No consolidation or dominant measurable mass. No architectural distortion. Pulmonary Arteries: No evidence of filling defect to suggest pulmonary emboli. Mediastinum and Carol: No dominant adenopathy or fluid collection. The esophagus is unremarkable. Visualized thyroid gland: Unremarkable. Pleura: No effusion or pneumothorax. Heart: The heart is not dilated. No coronary artery calcifications are seen. No pericardial effusion. Aorta: Thoracic aorta non-dilated. No evidence of dissection. Upper abdomen: Unremarkable. Soft tissues: Unremarkable. Bones: Within normal limits for the patient's age. IMPRESSION: No evidence of pulmonary embolism, thoracic aortic dissection or aneurysm. RADIATION DOSE DELIVERED: 387.21mGy.cm Total DLP DATA REPOSITORY: All CT scans at this facility are submitted to the National Radiology Data Registry (NRDR) Dose Index Registry (DIR) with the [employer] (ACR). RADIATION OPTIMIZATION: All CT scans at this facility use at least one of these dose optimization te chniques: automated exposure control; mA and/or kV adjustment per patient size (includes targeted exa ms where dose is matched to clinical indication); or iterative reconstruction.
--- NOTE | 2023-02-15 22:08 | ED.GENADUL_ITS ---
Discharge Plan Disposition Patient Disposition: Home Condition: Good Discharge Details Clinical Impression: Chronic cough Primary Care Provider: Marcie Rose ED Provider: Jim Lawson Home Meds and New Rx's Prescriptions: New benzonatate 100 mg capsule 100 mg PO TID Qty: 30 0RF famotidine [Pepcid] 40 mg tablet 40 mg PO DAILY Qty: 30 0RF pantoprazole [Protonix] 40 mg tablet,delayed release (DR/EC) 40 mg PO DAILY Qty: 30 0RF Discharge Instructions Instructions: Acute Cough (ED) Additional Instructions: At this time the imaging thankfully shows no evidence of pneumonia or blood clot. As we discussed together I am concerned that there may be some mild stomach reflux that is causing the recurrent cough. Please take the Pepcid and Protonix that has been prescribed and sent to your pharmacy. Please take the Tessalon Perles as prescribed to help with your cough in the meantime. Please use your Symbicort inhaler, 2 puffs in the morning and evening every day for the next 1 to 2 weeks to help with the inflammation in your lungs. If your symptoms persist even in spite of this treatment after 2 to 3 weeks, you may require further testing by your primary care provider or a public relations specialist. If you notice any worsening of your symptoms, or any new symptoms such as vomiting, diarrhea, fever, chills, shortness of breath, chest pain, numbness, weakness, or fainting , please return immediately to the emergency department for reevaluation. Please follow up with your primary care provider as soon as possible for reassessment and reevaluation. As always, it was a pleasure participating in your medical care today. Referrals: Marcie Rose [Primary Care Provider] - Medical Decision Making 32-year-old -Ni[place] female with past medical history of hypertension presents today for evaluation of cough. Patient states that 2 months ago she was started on lisinopril, and shortly thereafter she developed a cough. About 1 month ago she stopped taking the medication, and also felt somewhat sick at the time. She was never treated for any pneumonia or tested or evaluated at that time. Since then the patient has continued to have cough for 2 months total. She did go to an urgent care 2 days ago, where she had per patient and negative chest x-ray and was given an albuterol inhaler for home use. This has not changed her symptoms. Her cough persists. Of note for the last 2 to 3 days she has also had a few episodes of vomiting during significant coughing fits. This vomiting has been of brought about by the coughing itself. She has noticed a small amount of blood tingeing with the vomiting. She does eat spicy foods but denies any history of reflux or burning sensation at night. She does admit to shortness of breath and general and with activity. She also does admit to mild pain when she takes a deep breath. She is on the Depo shot. Her family history is positive for blood clots in her mother side. She did have per patient negative COVID test outpatient already. She does not smoke. Her partner does smoke outside though. She has never used tobacco or vaping products. No fever or chills. No other complaints at this time. Physical exam demonstrates a well-appearing female, lungs are notably clear, O2 saturation is excellent, respiratory rate is normal. Differential includes PE secondary to her family history and control. Additionally there is concern for potential reflux as evidenced by the small amount of blood that she has noticed in her sputum. I wonder if she is having chronic reflux every night which is causing pulmonary irritation and subsequent coughing. Additionally infection versus small tumor is of concern. Less likely would be an TATI induced cough, as she has been off the medication for quite some time now. We will get a CTA, basic blood work, give Protonix and famotidine and Carafate, monitor closely and reassess. 11:[address]/CTA is negative for pulmonary embolism or pneumonitis or pneumonia per radiology. Patient feels well. Patient's oxygenation remains notably stable. At this time I do feel that there may be a component of chronic bronchial irritation versus mild reflux causing bronchial irritation or inflammation. We will transition the patient to Symbicort 2 puffs twice daily, as well as Protonix and famotidine. Will give Tessalon Perle prescription for home use. Recommend adherence to this and avoidance of spicy foods for the next 2 to 3 weeks until she follows up with her primary care provider. If she is still not having resolution with this therapy she may require further testing with pulmonary function testing and pulmonology follow-up. We will wait until the patient is reassessed by her PCP for the next step in regards to that decision/direction. Otherwise patient appears stable. Discussed red flags for which to return. No indication for antibiotics at this time with no evidence of infectious etiology. I have extensively reviewed the treatment plan and discharge instructions with the patient and their family. I have addressed all patient concerns at this time. The patient and family was made aware of what symptoms to monitor for that would warrant a return to the emergency department. Discussed the plan with the patient and family, they demonstrate verbal understanding and agreement with our assessment and plan at this time. The documentation in this chart was dictated using [employer] dictation software. Please excuse any dictation errors. FINDINGS: Pulmonary arteries: Normal. No pulmonary emboli. Aorta: Unremarkable. No aortic aneurysm. No aortic dissection. Lungs: Unremarkable. No consolidation. No masses. Pleural spaces: Unremarkable. No pneumothorax. No pleural effusion. Heart: Unremarkable. No cardiomegaly. No pericardial effusion. Lymph nodes: Unremarkable. No enlarged lymph nodes. Bones/joints: Mild degenerative changes noted throughout the thoracic spine. No vertebral body compression or acute fracture. Soft tissues: Unremarkable. IMPRESSION: No evidence of pulmonary embolus or other acute abnormality in the chest Thank you for allowing us to participate in the care of your patient. Dictated and Authenticated by: Amando Hayes MD 02/15/2023 11:26 PM Eastern Time ([place] & [place]) HPI General Date/Time Provider Initiated Documentation: 02/15/23 21:42 . HPI Narrative: 32-year-old -[place] female with past medical history of hypertension presents today for evaluation of cough. Patient states that 2 months ago she was started on lisinopril, and shortly thereafter she developed a cough. About 1 month ago she stopped taking the medication, and also felt somewhat sick at the time. She was never treated for any pneumonia or tested or evaluated at that time. Since then the patient has continued to have cough for 2 months total. She did go to an urgent care 2 days ago, where she had per patient and negative chest x-ray and was given an albuterol inhaler for home use. This has not changed her symptoms. Her cough persists. Of note for the last 2 to 3 days she has also had a few episodes of vomiting during significant coughing fits. This vomiting has been of brought about by the coughing itself. She has noticed a small amount of blood tingeing with the vomiting. She does eat spicy foods but denies any history of reflux or burning sensation at night. She does admit to shortness of breath and general and with activity. She also does admit to mild pain when she takes a deep breath. She is on the Depo shot. Her family history is positive for blood clots in her mother side. She did have per patient negative COVID test outpatient already. She does not smoke. Her partner does smoke outside though. She has never used tobacco or vaping products. No fever or chills. No other complaints at this time. Related Data Home Medications Medication Instructions Recorded Confirmed benzonatate 100 mg capsule 100 mg PO TID #30 caps 02/15/23 famotidine 40 mg tablet (Pepcid) 40 mg PO DAILY #30 tabs 02/15/23 pantoprazole 40 mg tablet,delayed 40 mg PO DAILY #30 tabs 02/15/23 release (Protonix) Previous Rx's Medication Instructions Recorded benzonatate 100 mg capsule 100 mg PO TID #30 caps 02/15/23 famotidine 40 mg tablet (Pepcid) 40 mg PO DAILY #30 tabs 02/15/23 pantoprazole 40 mg tablet,delayed 40 mg PO DAILY #30 tabs 02/15/23 release (Protonix) Allergies Allergy/AdvReac Type Severity Reaction Status Date / Time No Known Allergies Allergy Verified 02/13/20 08:15 General Stated Complaint: RespSymp CONSUELO: 4 PFSH All Active Problems (Updated 02/15/23 @ 23:24 by Jim Lawson DO) Chronic cough (Acute) History of MRSA infection (Acute) Sleep walking (Acute) While taking ambien - normal sleep study 09/2019 BMI 30.0-30.9,adult (Acute) (Acute) First trimester bleeding (Acute) Positive test (Acute) Medical History (Updated 02/15/23 @ 23:24 by Jim Lawson DO) Depot contraception DepoProvera inj q 3mo. MRSA (methicillin resistant Staphylococcus aureus) infection Vulvar abscess 04/2018. Rx with Bactrim. Family History Mother Essential hypertension Hyperlipidemia Maternal Aunt Breast cancer at 52 Social History Smoking/Tobacco Use Status: Never Second Hand Exposure: Yes Smoking risk assessment performed?: Yes Alcohol Intake: current Alcohol Intake frequency: a few times a month Alcohol type: wine Drug use: Never Substance use type: does not use Adopted: No Foster care: No Household members: significant other What is your relationship status?: living with partner Panel score (0-1 are the most socially isolated patients): 1 What type of physical activity do you participate in: walking Duration: 30-45 minutes/day Frequency: other Details: 2-3 X MONTH Nesha/[employer]: NONDENOMINATIONAL Seatbelt use: always Do you feel safe at home: Yes Do you feel safe in your relationship?: Yes Female Reproductive History Menstrual control method: progesterone injection History History 0 Para Hx # Term Pregnancies Multiple births Hx # Pregnancies Ectopic pregnancies AB induced Hx Number of Living Children AB spontaneous Course Vital Signs Vital signs: Vital Signs Temperature 36.4 C L 02/15/23 21:41 Pulse 77 02/15/23 21:41 Respiratory Rate 16 02/15/23 21:41 Blood Pressure 155/106 H 02/15/23 21:41 Pulse Oximetry 100 02/15/23 21:41 Temperature 36.4 C L 02/15/23 21:41 Temperature Source Temporal Artery Scan 02/15/23 21:41 Pulse 77 02/15/23 21:41 Respiratory Rate 16 02/15/23 21:41 Respiratory Effort Normal 02/15/23 22:04 Respiratory Depth Normal 02/15/23 22:04 Blood Pressure 155/106 H 02/15/23 21:41 Blood Pressure Position Sitting 02/15/23 21:41 Pulse Oximetry 100 02/15/23 21:41 Oxygen Delivery Method Room Air 02/15/23 21:41 Oxygen Flow Rate 0 02/15/23 21:41 Pain Level 0 02/15/23 21:41
[2023-02-15 22:17] LABS: Abs Immature Grans 0.01 10^3/uL (0.0-0.06); Absolute Basophil Count 0.03 10^3/uL (0.0-0.2); Absolute Eosinophil Count 0.34 10^3/uL (0.0-0.7); Absolute Lymphocyte Count 3.12 10^3/uL (1.2-3.4); Absolute Monocyte Count 0.67 10^3/uL (0.1-0.8); Absolute Neutrophil Count 4.35 10^3/uL (1.2-6.7); Basophils % 0.4; HCT 38.8 % (36.0-46.0); HGB 12.9 g/dL (11.2-15.7); Immature Grans % 0.1; Lymphocytes % 36.6; MCH 30.4 pg (27.0-33.0); MCHC 33.2 % (32.0-36.0); MCV 92 fL (80-95); MPV 9.2 fL (8.0-11.0); Monocytes % 7.9; Platelet Count 372 10^3/uL (130-400); RBC 4.24 10^6/uL (3.93-5.22); RDW 12.3 % (11.7-14.6); RDW-SD 40.9 fL; WBC 8.52 10^3/uL (4.4-10.8)
[2023-02-15] MEDS: Sucralfate 1 GM TAB PO (22:22)
[2023-02-15] MEDS: Famotidine 20 MG/2 ML VIAL IVP (22:23)
[2023-02-15] MEDS: Pantoprazole 40 MG VIAL IVP (22:23)
[2023-02-15 22:36] LABS: ALT 32 U/L (14-59); AST 18 U/L (15-37); Albumin 3.5 g/dL (3.4-5.0); Alkaline Phosphatase 95 U/L (46-116); Anion Gap 6.2 mmol/L (3-11); BUN 10 mg/dL (7-18); Bilirubin, Total 0.3 mg/dL (0.2-1.0); CO2 26.8 mmol/L (21.0-32.0); CREATININE 0.7 mg/dL (0.55-1.02); Calcium 8.9 mg/dL (8.5-10.1); Chloride 103 mmol/L (98-107); Estimated GFR 117.77 (mL/min/1.73m2); Glucose 104 mg/dL (74-106); Potassium 3.9 mmol/L (3.5-5.1); Sodium 136 mmol/L (136-145); Total Protein 7.8 g/dL (6.4-8.2)
[2023-02-15] MEDS: Normal Saline - Diluent 50 ML VIAL IJ (22:39)
[2023-02-15] MEDS: Normal Saline Flush 10 ML SYR IVP (22:40)
[2023-02-15] MEDS: Omnipaque 350 MG/ML 100 ML BTL IJ (22:40)
--- NOTE | 2023-02-15 23:27 | DI.VRAD_ITS ---
PROCEDURE INFORMATION: Exam: CTA Chest With Contrast Exam date and time: 02/15/2023 10:41 PM Age: 32 years old Clinical indication: Other: 2 months cough, -cxr, R/O pe/infxn/mass TECHNIQUE: Imaging protocol: Computed tomographic angiography of the chest with contrast. Exam focused on the arteries. 3D rendering (Not supervised by radiologist): MIP and/or 3D reconstructed images were created by the technologist. Contrast material: OMNIPAQUE 350; Contrast volume: 100 ml; Contrast route: INTRAVENOUS (IV); COMPARISON: CT ABDOMEN PELVIS W 05/11/2019 10:27 PM FINDINGS: Pulmonary arteries: Normal. No pulmonary emboli. Aorta: Unremarkable. No aortic aneurysm. No aortic dissection. Lungs: Unremarkable. No consolidation. No masses. Pleural spaces: Unremarkable. No pneumothorax. No pleural effusion. Heart: Unremarkable. No cardiomegaly. No pericardial effusion. Lymph nodes: Unremarkable. No enlarged lymph nodes. Bones/joints: Mild degenerative changes noted throughout the thoracic spine. No vertebral body compression or acute fracture. Soft tissues: Unremarkable. IMPRESSION: No evidence of pulmonary embolus or other acute abnormality in the chest Dictated and Authenticated by: Amando Hayes MD. Ordering:INA Fernandez MD
[2023-02-16] MEDS: Benzonatate 200 MG CAP PO (00:04)
[2023-02-16] MEDS: Budesonide/Formoterol 160/4.5 6 GM 60 PUFF INH IH (00:10)
[2023-02-16] MEDS: Inhaler, Assist Device 1 EACH MC (00:11)
[2023-02-16 00:12] VITALS: BP 136/90; PULSE 80; RESP 24; O2SAT 100
== END 2023-02-16 00:28 | disposition home or self-care (01) ==
PROVIDERS: Emergency Provider Student in an Organized Health Care Education/Training Program; PCP Nurse Practitioner Family
DX: R05.3 Chronic cough (principal); R11.10 Vomiting, unspecified
CPT/HCPCS: 71275; 80053; 81025; 96374; 96375; 99285; 85025; 99284; J3490

== ENCOUNTER 2023-03-01 11:30 | Outpatient (REF) | payer BC, MEDICAID, SELFPAY ==
[2023-03-01 15:55] LABS: Bilirubin Negative (Negative); Blood Trace-intact (Negative); Clarity Clear (Clear); Glucose Negative (Negative); Ketones Negative (Negative); Leukocyte Esterase Negative (Negative); Nitrite Negative (Negative); Urobilinogen 0.2 mg/dL (Up to 0.2)
[2023-03-01 16:18] LABS: Bacteria Rare HPF (Negative); Epithelial Cells Few HPF (Negative); RBC 0-2 HPF (0-2); WBC 0-2 HPF (0-5)
[2023-03-01 16:19] LABS: C & S Indicated? No; Casts Negative LPF (Negative); Crystals Negative HPF (Negative); Mucus Negative (Negative)
[2023-03-01 16:59] LABS: HCT 39.1 % (36.0-46.0); HGB 13.3 g/dL (11.2-15.7); MCH 30.3 pg (27.0-33.0); MCV 89 fL (80-95); MPV 9.9 fL (8.0-11.0); Platelet Count 342 10^3/uL (130-400); RBC 4.39 10^6/uL (3.93-5.22); RDW 12.2 % (11.7-14.6); RDW-SD 40.1 fL; WBC 7.03 10^3/uL (4.4-10.8)
[2023-03-01 17:39] LABS: Anion Gap 9.7 mmol/L (3-11); BUN 11 mg/dL (7-18); CO2 27.3 mmol/L (21.0-32.0); CREATININE 0.7 mg/dL (0.55-1.02); Calcium 9.4 mg/dL (8.5-10.1); Chloride 104 mmol/L (98-107); Estimated GFR 117.77 (mL/min/1.73m2); Glucose 110 mg/dL (74-106); Potassium 4.3 mmol/L (3.5-5.1); Sodium 141 mmol/L (136-145); TSH (W/Ref FT4) 2.91 uIU/mL (0.36-3.74)
[2023-03-01 17:44] LABS: Hemoglobin A1C 5.2 % (<5.7)
== END 2023-03-01 11:31 | disposition home or self-care (01) ==
LOC: NCHCN 11:30
PROVIDERS: PCP Nurse Practitioner Family; Visit Provider Nurse Practitioner Family
DX: R73.9 Hyperglycemia, unspecified (principal); R35.1 Nocturia; L65.9 Nonscarring hair loss, unspecified; R82.998 Other abnormal findings in urine
CPT/HCPCS: 80048; 85027; 81003; 81015; 83036; 84443

== ENCOUNTER 2023-06-01 21:07 | Outpatient (REF) | payer BC, MEDICAID, SELFPAY | END 2023-06-01 21:08 | disposition home or self-care (01) | LOC: NCHCN 21:07 | PROVIDERS: PCP Nurse Practitioner Family; Visit Provider Nurse Practitioner Family | DX: N76.0 Acute vaginitis (principal); N89.8 Other specified noninflammatory disorders of vagina | CPT/HCPCS: 87480; 87510; 87660 ==

== ENCOUNTER 2023-07-04 18:31 | Outpatient (REF) | payer BC, MEDICAID, SELFPAY ==
[2023-07-04 20:05] LABS: Hemoglobin A1C 5.2 % (<5.7)
[2023-07-04 20:07] LABS: ALT 32 U/L (14-59); AST 25 U/L (15-37); Albumin 3.9 g/dL (3.4-5.0); Alkaline Phosphatase 101 U/L (46-116); Anion Gap 10.4 mmol/L (3-11); BUN 9 mg/dL (7-18); Bilirubin, Total 0.4 mg/dL (0.2-1.0); CO2 23.6 mmol/L (21.0-32.0); CREATININE 0.8 mg/dL (0.55-1.02); Calcium 9.4 mg/dL (8.5-10.1); Calculated LDL 141 mg/dL (<100); Chloride 104 mmol/L (98-107); Cholesterol 251 mg/dL (<200); Estimated GFR 99.71 (mL/min/1.73m2); Glucose 101 mg/dL (74-106); HDL Cholesterol 93 mg/dL (40-60); Potassium 3.9 mmol/L (3.5-5.1); Sodium 138 mmol/L (136-145); Total Protein 7.9 g/dL (6.4-8.2); Triglyceride 88 mg/dL (<150)
== END 2023-07-04 18:32 | disposition home or self-care (01) ==
LOC: NCHCN 18:31
PROVIDERS: PCP Nurse Practitioner Family; Visit Provider Nurse Practitioner Family
DX: I10 Essential (primary) hypertension (principal); R63.5 Abnormal weight gain
CPT/HCPCS: 80053; 80061; 83036

== ENCOUNTER 2023-07-23 04:19 | Outpatient (CLI) | payer BC, MEDICAID, SELFPAY ==
[2023-07-23] MEDS: Levalbuterol HFA 15 GM INH 4 PUFF IH (14:14)
[2023-07-23] MEDS: Inhaler, Assist Device 1 EACH MC (14:15)
--- NOTE | 2023-07-24 16:08 | W.PFT ---
Date of service: 07/23/23 Time of Service: 12:53 Pulmonary Function Test Result Indications: Cough Interpretation Spirometry: There is no airflow limitation. No significant bronchodilator response. Restrictive appearing spirometry. Lung Volumes: Normal lung volumes Diffusion Capacity: Normal lung volumes Airway Pressure: Normal airways resistance Impression Normal pulmonary function. Restrictive appearing spirometry is likely pseudorestriction from obesity. Clinical Correlation therefore is recommended.
== END 2023-07-23 04:20 | disposition home or self-care (01) ==
PROVIDERS: PCP Nurse Practitioner Family; Visit Provider Nurse Practitioner Family
DX: R05.3 Chronic cough (principal)
CPT/HCPCS: 94060; 94726; 94729

== ENCOUNTER 2023-11-26 14:07 | Outpatient (REF) | payer BC, SELFPAY ==
[2023-11-26 15:44] LABS: ALT 23 U/L (14-59); AST 21 U/L (15-37); Albumin 3.7 g/dL (3.4-5.0); Alkaline Phosphatase 96 U/L (46-116); Anion Gap 11.2 mmol/L (3-11); BUN 9 mg/dL (7-18); Bilirubin, Total 0.3 mg/dL (0.2-1.0); CO2 23.8 mmol/L (21.0-32.0); CREATININE 0.7 mg/dL (0.55-1.02); Calcium 9.3 mg/dL (8.5-10.1); Calculated LDL 169 mg/dL (<100); Chloride 103 mmol/L (98-107); Cholesterol 271 mg/dL (<200); Estimated GFR 117.04 (mL/min/1.73m2); Glucose 89 mg/dL (74-106); HDL Cholesterol 86 mg/dL (40-60); Sodium 138 mmol/L (136-145); Triglyceride 83 mg/dL (<150)
== END 2023-11-26 14:08 | disposition home or self-care (01) ==
LOC: NCHCN 14:07
PROVIDERS: PCP Nurse Practitioner Family; Visit Provider Nurse Practitioner Family
DX: I10 Essential (primary) hypertension (principal)
CPT/HCPCS: 80053; 80061

== ENCOUNTER 2024-04-04 14:41 | Outpatient (REF) | payer BC, SELFPAY ==
[2024-04-04 18:50] LABS: Abs Immature Grans 0.02 10^3/uL (0.0-0.06); Absolute Basophil Count 0.04 10^3/uL (0.0-0.2); Absolute Eosinophil Count 0.24 10^3/uL (0.0-0.7); Absolute Lymphocyte Count 2.82 10^3/uL (1.2-3.4); Absolute Monocyte Count 0.64 10^3/uL (0.1-0.8); Absolute Neutrophil Count 5.32 10^3/uL (1.2-6.7); Basophils % 0.4 %; Eosinophils % 2.6 %; HCT 40.9 % (36.0-46.0); HGB 13.8 g/dL (11.2-15.7); Immature Grans % 0.2 %; Lymphocytes % 31.1 %; MCH 29.5 pg (27.0-33.0); MCHC 33.7 % (32.0-36.0); MCV 87 fL (80-95); Neutrophils % 58.7 %; Platelet Count 417 10^3/uL (130-400); RBC 4.68 10^6/uL (3.93-5.22); RDW-SD 38.4 fL; WBC 9.08 10^3/uL (4.4-10.8)
[2024-04-04 19:14] LABS: ALT 27 U/L (14-59); AST 27 U/L (15-37); Albumin 4.1 g/dL (3.4-5.0); Alkaline Phosphatase 99 U/L (46-116); Anion Gap 10.4 mmol/L (3-11); BUN 8 mg/dL (7-18); Bilirubin, Total 0.33 mg/dL (0.2-1.0); CO2 24.6 mmol/L (21.0-32.0); CREATININE 0.9 mg/dL (0.55-1.02); Calcium 9.6 mg/dL (8.5-10.1); Chloride 103 mmol/L (98-107); Estimated GFR 86.57 (mL/min/1.73m2); Glucose 91 mg/dL (74-106); Potassium 3.9 mmol/L (3.5-5.1); Sodium 138 mmol/L (136-145); TSH (W/Ref FT4) 3.38 uIU/mL (0.36-3.74); Total Protein 8.5 g/dL (6.4-8.2)
== END 2024-04-04 14:42 | disposition home or self-care (01) ==
LOC: NCHCN 14:41
PROVIDERS: Visit Provider Nurse Practitioner Family
DX: I10 Essential (primary) hypertension (principal); F41.8 Other specified anxiety disorders; R03.0 Elevated blood-pressure reading, without diagnosis of hypertension
CPT/HCPCS: 80053; 84443; 85025

== ENCOUNTER 2024-04-21 02:35 | Outpatient (CLI) | payer BC, SELFPAY ==
--- NOTE | 2024-04-21 | DI.US_ITS ---
APPROVED REPORT EXAM: Comprehensive 2D, Doppler, and color-flow Echocardiogram Patient Location: Out-Patient Drier Tender: Nate Lara RDCS (AE) Indications: Systolic murmur Conclusion Normal left tubular wall thickness and chamber size. Ejection fraction is 60 to 65%. Wall motion is normal Normal right ventricular size and function Both atria are normal in size There is no structural or hemodynamically significant valvular disease Estimated right ventricular systolic pressure is 20 mmHg Wall motion Left Ventricle The left ventricle is normal size. The left ventricular systolic function is normal. The left ventric ular ejection fraction is within the normal range. There is normal left ventricular wall thickness. T here is normal LV segmental wall motion. There is no ventricular septal defect visualized. LVEF is 60 -65%. Right Ventricle The right ventricle is normal size. The right ventricular systolic function is normal. Atria The left atrium size is normal. The right atrium size is normal. The interatrial septum is intact wit h no evidence for an atrial septal defect. Aortic Valve The aortic valve is normal in structure. Aortic valve is trileaflet. There is no aortic valvular sten osis. No aortic regurgitation is present. Mitral Valve The mitral valve is normal in structure. No evidence of mitral valve stenosis. Tricuspid Valve The tricuspid valve is normal in structure. There is no tricuspid valve stenosis. Trace tricuspid reg urgitation. The RVSP is 20 mmHg. Pulmonic Valve The pulmonary valve is normal in structure. There is no pulmonic valvular stenosis. Mild pulmonic reg urgitation. Great Vessels The aortic root is normal in size. Ascending aorta is not well visualized. Aortic arch is normal in c aliber. IVC is normal in size and collapses >50% with inspiration. Pericardium There is no pericardial effusion. 2D Dimensions IVSD d PLAX 0.88 cm F: 0.6-1.0 Ao Root d 2.37 cm F: 2.7 - 3.3 LVPW d PLAX 0.87 cm F: 0.6 - 1.0 LVID d PLAX 4.21 cm F: 3.8 - 5.2 LVDs 2.72 cm F: 2.2 - 3.5 LV EF Teichholz 65.2 % FS 35.41 % LV EDV (Teich) 79.0 mL LV ESV (Teich) 27.5 mL Stroke Vol Index (Teich) 30.12 M-Mode TAPSE 1.53 cm (M/F) >1.7 Auto EF LV EDV A4C 90.3 mL LV EDV A2C 75.2 mL LV EDV BP 83.7 mL LV ESV A4C 36.5 mL LV ESV A2C 29.2 mL LV ESV BP 33.4 mL LVEF(%) A4C 59.5 % LVEF(%) A2C 61.2 % LVEF(%) BP 60.1 % LV SV A4C 53.8 ml LV SV A2C 46.0 ml LV SV BP 50.3 ml LV CO A4C 4.2 L/min LV CO A2C 3.8 L/min LV CO BP 4.0 L/min HR A4C 78.40 BPM HR A2C 82.20 BPM LV EDV Index (BP) LA Volume LA Length A4C 5.0 cm LA Length A2C 4.3 cm LA Area A4C s 13.91 cm2 LA Area A2C s 8.69 cm2 LA Vol A4C A-L 32.90 mL LA Vol A2C A-L 14.90 mL LA Vol Biplane A-L 23.9 mL LA Vol/BSA A4C A-L LA Vol/BSA A2C A-L LA Vol/BSA BP A-L 13.9 mL/m2 LA Vol A4C MOD 30.8 mL LA Vol A2C MOD 14.4 mL LA Vol BP MOD 22.2 mL RA Volume RA Area A4C 9.2 cm2 RA ESV A4C (A-L) 17.0mL RA Vol/BSA A4C A-L RA Length A4C 4.2 cm RA ESV A4C (MOD) 16.0mL LV Diastology MV E' medial 0.096 (>0.07 m/s) MV E Vmax 0.96 (0.4-1.3 m/s) MV E/E' MED 10.03 (<14) MV A Vmax 0.85 (0.4-1.3 m/s) MV E' lateral 0.114 (>0.1 m/s) E/A Ratio 1.1 MV E/E' LAT 8.42 (<14) MV E' Average 0.105 m/s MV E/E'(average) 9.16 Aortic Valve AoV Vmax 1.36 m/s LVOT Vmax 1.27 m/s AoV Peak Grad 7.4 mmHg LVOT Peak Grad 6.5 mmHg AoV Area (Vmax) 2.22 cm2 LVOT VTI 0.252 m AoV VTI 0.290 m LVOT Mean Grad 3.3 mmHg AoV Mean Willian. 0.97 m/s LVOT SV 59.54 mL AoV Mean Grad 4.2 mmHg LVOT Diam s 1.70 cm AoV Area (VTI) 2.06 cm2 AV Regurg Peak Gr. 7.37 mmHg Velocity Ratio 0.93 Mitral Valve MV DT 156 (160-240 msec) MV Vmax TIPS 0.86 m/s MV Mean Grad 1.4 (<2mmHg) MV VTI 0.229 m Pulmonary Valve PV Vmax 0.94 (0.5-1.5 m/s) RVOT Vmax 0.65 m/s PV Peak Grad 3.6 mmHg RVOT Peak Gr. 1.7 mmHg PV Mean Willian 0.67 m/s RVOT VTI 0.118 m PV Mean Grad 2.0 mmHg RVOT Mean Gr. 0.9 mmHg Tricuspid Valve RA Pressure 3.00 mmHg TR Vmax 2.25 m/s TR Peak Grad 20.3 mmHg RVSP (TR) 23.3 mmHg
== END 2024-04-21 02:55 ==
LOC: DI 02:35
PROVIDERS: Visit Provider Nurse Practitioner Family
DX: R01.1 Cardiac murmur, unspecified (principal)
CPT/HCPCS: 93306

== ENCOUNTER 2024-05-19 08:15 | Outpatient (CLI) | payer BC, SELFPAY ==
--- NOTE | 2024-05-19 08:15 | RT.EKG_ITS ---
APPROVED REPORT Exam: Resting ECG Reason for Exam: HTN Patient Location: O HR:83 bpm ECG Measurements Heart Rate 83 AXIS OH 135 P 52 QRSd 81 QRS 17 QT 355 T 24 QTc 418 Conclusion Sinus rhythm...normal P axis, V-rate 50- 99 Probable left atrial enlargement...P >50mS, <-0.10mV V1 Otherwise normal ECG
== END 2024-05-19 08:16 | disposition home or self-care (01) ==
LOC: DI.CARD 08:16
PROVIDERS: PCP Nurse Practitioner Family; Visit Provider Internal Medicine Cardiovascular Disease
DX: I10 Essential (primary) hypertension (principal)
CPT/HCPCS: 93010

== ENCOUNTER 2025-02-05 01:10 | Emergency (ER) | payer BC, SELFPAY ==
[2025-02-05] VITALS (30 sets, daily range): BP systolic 155–226; BP diastolic 92–148; PULSE 79–114; RESP 18–20; TEMP 36.3; O2SAT 97–100
--- NOTE | 2025-02-05 01:18 | ED.GENADUL_ITS ---
Discharge Plan Discharge Details Chief Complaint: Abd Prob Clinical Impression: RUQ abdominal pain Primary Care Provider: Lacy Jiménez ED Provider: Grayson Joyner Home Meds and New Rx's Prescriptions: No Action hydralazine 25 mg tablet 50 mg PO TID sertraline 25 mg tablet 25 mg PO DAILY labetalol 100 mg tablet 100 mg PO BID trazodone 50 mg tablet 100 mg PO DAILY Rx Instructions: take 2 tabs by mouth at bedtime as needed for insomnia clonidine HCl 0.1 mg tablet 0.1 mg PO TID PRN Patient Comments: 07/07/24 per PCP med list take for BP >150/100 RH HPI General Mode of arrival: ambulatory . Date/Time Provider Initiated Documentation: 02/05/25 01:18 . Limitations to Documentation: no limitations . Information obtained by: patient and RN notes reviewed . HPI Narrative: Patient presents to ED with upper abdominal pain that has been worsening over the last 36 hours. She has associated nausea but no vomiting. Pain radiates into the back. She denies chest pain or shortness of breath. Pain is not made worse by eating or drinking or by taking deep breaths. She did start her menstrual cycle the day prior to onset of pain. She denies any pelvic pain or lower abdominal pain. She has no urinary symptoms. Denies fever that she is aware of. She has had previous C-sections no other abdominal surgeries. She appears very uncomfortable and is crying. She has developed a headache which she reports having now and again. Is mostly left-sided and throbbing in nature. She denies any type of neurologic changes. Related Data Home Medications ?Medication ?Instructions ?Recorded ?Confirmed labetalol 100 mg tablet 100 mg PO BID 03/12/24 02/05/25 trazodone 50 mg tablet 100 mg PO DAILY 03/12/24 02/05/25 hydralazine 25 mg tablet 50 mg PO TID 05/19/24 02/05/25 sertraline 25 mg tablet 25 mg PO DAILY 05/19/24 02/05/25 clonidine HCl 0.1 mg tablet 0.1 mg PO TID PRN 07/07/24 02/05/25 Allergies Allergy/AdvReac Type Severity Reaction Status Date / Time No Known Allergies Allergy Verified 02/05/25 01:20 General CONSUELO: 4 Exam Narrative Exam Narrative: Const: WDWN female in NAD. VS per triage. HEENT: NC/AT. Normal facial exam. Neck: Supple. Trachea midline. Lungs: Normal respiratory effort. Lungs are clear. Cor: RRR without murmur. Good radial pulses. GI: Soft/ND. Tender in the upper abdomen R > L some voluntary guarding in R; no Barrientos's. Neuro: A+O x 3. Normal speech, mentation, gait. Cranial nerves II - XII grossly intact. No gross motor or sensory deficit. Ext: No C/C/E. Medical Decision Making Patient presenting to ED with 36 hours of worsening upper abdominal pain with nausea. She is quite tender in the right upper quadrant. Pain radiates to the back. She appears quite uncomfortable. She is also complaining of headache but is neurologically intact. Blood pressure markedly elevated but history of hypertension which is not well-controlled. Given her tachycardia as well suspect some of this is being driven by pain and discomfort. Differential includes peptic ulcer disease, pancreatitis, cholecystitis/choledocholithiasis. IV established. Will give a liter of fluids as well as morphine and ondansetron. Suspect blood pressure and heart rate will improve once symptoms controlled. All laboratory studies and CT scan ordered. 02:40 - Patient reports some improvement in pain after single dose of morphine. auxiliary equipment tender across the upper abdomen but most significantly tender in the right upper quadrant. Laboratory studies are pretty unremarkable. She has a normal white count. She has normal liver function and lipase. Potassium a little low at 3.2 and creatinine a little up at 1.3 otherwise normal chemistries. Preliminary read of CT scan is normal, with no acute process noted. Blood pressure still elevated though heart rate now normal. Doubt that this has anything to do with cardiac but given initial unremarkable workup we will check EKG and add troponin to labs. Will dose with IV famotidine and pantoprazole in case this is related to peptic ulcer. Will reevaluate and consider right upper quadrant ultrasound later this morning. 03:40 - Patient reporting improvement in her pain after IV famotidine and pantoprazole. Still however tender in the right upper quadrant on exam. EKG is sinus rhythm with nonspecific ST changes but unchanged from previous per my read. Add-on troponin is negative. Will continue to monitor and reassess abdomen. I have discussed with the patient holding till morning for ultrasound to further evaluate the possibility of gallbladder disease. She is agreeable with this. 05:00 - Pain worsening again. Morphine ordered. RUQ U/S ordered. Lab Data Lab results reviewed: Yes I reviewed the patient's lab results. Lab results narrative: see MDM ECG Data Attestation: I personally reviewed and interpreted this ECG (s) as follows: Prior ECG tracings: available for review Interpretation: see EKG/MDM PFSH All Active Problems (Updated 02/05/25 @ 06:52 by Grayson Joyner MD) RUQ abdominal pain (Acute) Depot contraception (Acute) DepoProvera inj q 3mo. Sleep walking (Acute) While taking ambien - normal sleep study 09/2019 BMI 30.0-30.9,adult (Acute) Medical History Essential hypertension MRSA (methicillin resistant Staphylococcus aureus) infection Vulvar abscess 04/2018. Rx with Bactrim. Surgical History History of section Family History Mother Essential hypertension Hyperlipidemia Stroke Maternal Aunt Breast cancer at 52 Social History Smoking/Tobacco Use Status: Never Second Hand Exposure: Yes Smoking risk assessment performed?: Yes Alcohol Intake: current Alcohol Intake frequency: a few times a month Alcohol type: wine Drug use: Never Substance use type: does not use Adopted: No Foster care: No Household members: significant other What is your relationship status?: living with partner Panel score (0-1 are the most socially isolated patients): 1 What type of physical activity do you participate in: walking Duration: 30-45 minutes/day Frequency: other Details: 2-3 X MONTH Nesha/Yarsani: MANDAEN Seatbelt use: always Do you feel safe at home: Yes Do you feel safe in your relationship?: Yes Female Reproductive History Menstrual control method: progesterone injection History History 0 Para Hx # Term Pregnancies Multiple births Hx # Pregnancies Ectopic pregnancies AB induced Hx Number of Living Children AB spontaneous
[2025-02-05] MEDS: Ondansetron 4 MG/2 ML VIAL IVP (01:41)
[2025-02-05] MEDS: MORPHine 10 MG/ML VIAL 4 MG IVP (01:41)
[2025-02-05] MEDS: Normal Saline 1,000 ML 1000 ML IV (01:41)
[2025-02-05 01:44] LABS: Abs Immature Grans 0.02 10^3/uL (0.0-0.06); Absolute Basophil Count 0.03 10^3/uL (0.0-0.2); Absolute Eosinophil Count 0.33 10^3/uL (0.0-0.7); Absolute Lymphocyte Count 2.79 10^3/uL (1.2-3.4); Absolute Monocyte Count 0.82 10^3/uL (0.1-0.8); Absolute Neutrophil Count 4.02 10^3/uL (1.2-6.7); Basophils % 0.4 %; Eosinophils % 4.1 %; HCT 39.3 % (36.0-46.0); HGB 13.1 g/dL (11.2-15.7); Immature Grans % 0.2 %; Lymphocytes % 34.8 %; MCH 29.5 pg (27.0-33.0); MCHC 33.3 % (32.0-36.0); MCV 89 fL (80-95); MPV 9.5 fL (8.0-11.0); Monocytes % 10.2 %; Neutrophils % 50.3 %; Platelet Count 344 10^3/uL (130-400); RBC 4.44 10^6/uL (3.93-5.22); RDW 11.7 % (11.7-14.6); RDW-SD 37.7 fL; WBC 8.01 10^3/uL (4.4-10.8)
[2025-02-05 02:05] LABS: ALT 32 U/L (14-59); AST 25 U/L (15-37); Albumin 3.9 g/dL (3.4-5.0); Alkaline Phosphatase 101 U/L (46-116); Anion Gap 8.2 mmol/L (3-11); BUN 9 mg/dL (7-18); Bilirubin, Total 0.4 mg/dL (0.2-1.0); CO2 28.8 mmol/L (21.0-32.0); CREATININE 1.3 mg/dL (0.55-1.02); Calcium 9.6 mg/dL (8.5-10.1); Chloride 102 mmol/L (98-107); Estimated GFR 55.34 (mL/min/1.73m2); Glucose 105 mg/dL (74-106); Lipase 28 U/L (<78); Magnesium 1.9 mg/dL (1.8-2.4); Potassium 3.2 mmol/L (3.5-5.1); Sodium 139 mmol/L (136-145)
[2025-02-05] MEDS: Omnipaque 350 MG/ML 100 ML BTL 75 ML IJ (02:09)
[2025-02-05] MEDS: Normal Saline - Diluent 50 ML VIAL IJ (02:09)
--- NOTE | 2025-02-05 02:10 | DI.CT_ITS ---
Exam(s) CT ABDOMEN PELVIS W EXAM: CT ABDOMEN PELVIS W CLINICAL HISTORY: 36 hours of worsening abd pain; tender RUQ. TECHNIQUE: Imaging Protocol: Axial computed tomography images with coronal and sagittal reformatted images were created and reviewed CONTRAST MATERIAL: Intravenous: Omnipaque-350 75cc Oral: None COMPARISON: CT CT CHEST PE CTA from 02/15/2023 FINDINGS: VISUALIZED LUNG BASES: No nodules nor pleural effusions evident. ABDOMEN: There is no ascites. LIVER: There are no focal hepatic lesions evident. No dilated intrahepatic ducts. GALLBLADDER/BILIARY: No obvious gallbladder pathology. CBD is not dilated. PANCREAS: No evidence of pancreatic mass nor dilatation of the pancreatic duct. SPLEEN: Spleen is not enlarged. No obvious intrasplenic lesions. Splenic and portal veins are paten t. ADRENALS: There are no significant adrenal masses. KIDNEYS:No cysts evident. No solid renal masses. No calculi nor hydronephrosis.. ABDOMINAL AORTA: Abdominal aorta is not enlarged. LYMPH NODES:There is no retroperitoneal nor paraaortic adenopathy. ABDOMINAL WALL: There is anterior abdominal wall umbilical fat only containing hernia. GI: There is no evidence of bowel obstruction, free air, nor abscess. PELVIS: GI: No evidence of appendicitis.No evidence of sigmoid diverticulitis. LYMPH NODES: There is no intrapelvic nor inguinal adenopathy. REPRODUCTIVE: There is an air column in the vagina consistent with a tampon. Uterus size normal. No abnormal adnexal findings and no free fluid in the pelvis. URINARY BLADDER: No calculi nor obvious masses evident OSSEOUS: No fractures and no significant osseous lesions. IMPRESSION: 1. No significant acute findings in the abdomen and pelvis. 2. Tampon noted in the vagina. [facility] preliminary port was reviewed RADIATION DOSE DELIVERED: 539.08mGy.cm Total DLP DATA REPOSITORY: All CT scans at this facility are submitted to the National Radiology Data Registry (NRDR) Dose Index Registry (DIR) with the [employer] (ACR). RADIATION OPTIMIZATION: All CT scans at this facility use at least one of these dose optimization te chniques: automated exposure control; mA and/or kV adjustment per patient size (includes targeted exa ms where dose is matched to clinical indication); or iterative reconstruction.
--- NOTE | 2025-02-05 02:28 | DI.VRAD_ITS ---
PROCEDURE INFORMATION: Exam: CT Abdomen And Pelvis With Contrast Exam date and time: 02/05/2025 1:49 AM Age: 34 years old Clinical indication: Abdominal pain; Localized; Right upper quadrant (ruq); 36 hours of worsening abd pain; Tender ruq TECHNIQUE: Imaging protocol: Computed tomography of the abdomen and pelvis with contrast. Radiation optimization: All CT scans at this facility use at least one of these dose optimization techniques: automated exposure control; mA and/or kV adjustment per patient size (includes targeted exams where dose is matched to clinical indication); or iterative reconstruction. Contrast material: [id number]; Contrast volume: 75 ml; Contrast route: INTRAVENOUS (IV); COMPARISON: CT ABDOMEN PELVIS W 05/11/2019 10:27 PM FINDINGS: Liver: Normal. No mass. Gallbladder and biliary ducts: Normal. No calcified stones. No ductal dilation. Pancreas: Unremarkable. Spleen: Normal. Adrenal glands: Normal. No mass. Kidneys and ureters: Normal. No hydronephrosis. Stomach and bowel: No pneumatosis or portal/mesenteric venous gas. No bowel wall thickening or intestinal obstruction. Appendix: Normal appendix. Intraperitoneal space: No pneumoperitoneum or abscess. Vasculature: See Stomach and bowel finding. Lymph nodes: Unremarkable. Urinary bladder: Unremarkable as visualized. Reproductive: Tampon in place in the vagina. Uterus and ovaries are unremarkable. Bones/joints: Unremarkable. No acute fracture. Soft tissues: Unremarkable. IMPRESSION: No acute findings. Dictated and Authenticated by: Abel Garcia MD. Orderin Ar Galicia MD
--- NOTE | 2025-02-05 02:30 | RT.EKG_ITS ---
APPROVED REPORT Exam: Resting ECG Reason for Exam: abd pain; elevated BP Patient Location: E HR:88 bpm ECG Measurements Heart Rate 88 AXIS MO 138 P 34 QRSd 82 QRS 37 QT 364 T 57 QTc 440 Conclusion Sinus rhythm...normal P axis, V-rate 60- 99 Probable left atrial enlargement...P >50mS, <-0.10mV V1 Normal [place] There are no significant changes compared to prior EKG performed on 05/19/2024 at 10:05.
[2025-02-05 02:41] LABS: Lab Add On Test DONE
[2025-02-05] MEDS: Pantoprazole 40 MG VIAL IVP (02:44)
[2025-02-05] MEDS: Famotidine 20 MG/2 ML VIAL IVP (02:44)
[2025-02-05 02:58] LABS: Troponin I 18 ng/L (<or=51)
[2025-02-05] MEDS: MORPHine 4 MG/ML SYR IVP (05:14)
--- NOTE | 2025-02-05 07:16 | W.EDPROG ---
Date of service: 02/05/25 Time of Service: 07:16 Medical Decision Making I received signout on this 34-year-old female with right upper quadrant pain pending formal right upper quadrant ultrasound. LFTs within normal limits and normal reassuring lipase. Patient does have elevated blood pressure and is on multiple oral agents as an outpatient. 8:41 AM I met with the patient. Her ultrasound was reassuring against acute cholecystitis. She has no cholelithiasis. Is certainly possible that her symptoms could be from an ulcer. She does not have a primary care provider at the moment so I have asked health coordinator Peyton to have her established with a primary care provider. Her CT did note that she has a tampon in her vagina. I met with the patient. She was aware of the tampon in her vagina. We discussed toxic shock syndrome and she is having no fevers nor any lower abdominal pain. She plans to remove the tampon after ED discharge. Will trial her on famotidine in the event that there is a component of a gastric ulcer. She requests a refill of her trazodone but does not need refills on her labetalol nor her hydralazine nor her clonidine. Labs reviewed and were reassuring. We discussed that she should return to the ED if she developed any fevers worsening abdominal pain could not eat or drink or if she had any other concerns. She understood her return indications and was discharged with empiric trial of expectant outpatient management. 3:45 PM Patient did not fact have a PCP followed by [facility] coordinator Peyton to be Lacy Jiménez. She will help to arrange outpatient follow-up. Quality:SDOH Health Related Social Needs: No Data to Display Discharge Plan Disposition Patient Disposition: Home Discharge Details Clinical Impression: RUQ abdominal pain Primary Care Provider: Lacy Jiménez ED Provider: Neo Dumont Home Meds and New Rx's Prescriptions: New trazodone 50 mg tablet 50 mg PO QHS PRNQty: 20 0RF famotidine 40 mg tablet 40 mg PO BID Qty: 60 0RF Continued hydralazine 25 mg tablet 50 mg PO TID sertraline 25 mg tablet 25 mg PO DAILY labetalol 100 mg tablet 100 mg PO BID trazodone 50 mg tablet 100 mg PO DAILY Rx Instructions: take 2 tabs by mouth at bedtime as needed for insomnia clonidine HCl 0.1 mg tablet 0.1 mg PO TID PRN Patient Comments: 07/07/24 per PCP med list take for BP >150/100 RH Discharge Instructions Additional Instructions: You are seen in the emergency department for your abdominal pain. Your CAT scan and ultrasound showed no sign of any significant disease in your stomach. As we discussed if you develop worsening pain cannot eat or drink as result of nausea or vomiting or if you have any other concerns please return to the emergency department. Otherwise please begin taking this antiacid tablet as directed. A referral has been placed for a primary care provider. Discharge Data Discharge Date/Time-TO BE ENTERED AT DEPARTURE: 02/05/25 09:12
--- NOTE | 2025-02-05 07:30 | DI.US_ITS ---
Exam(s) US ABDOMEN LIMITED EXAM: US ABDOMEN LIMITED CLINICAL HISTORY: RUQ pain/tenderness TECHNIQUE: Ultrasound abdomen performed using standard protocol. COMPARISON: US US ECHOCARDIOGRAM from 04/21/[address] ABDOMEN PELVIS W from 02/05/2025 FINDINGS: There is no ascites evident. LIVER: There are no hepatic lesions evident nor dilatation of intrahepatic ducts. GALLBLADDER/BILIARY: There are no gallstones. No gallbladder wall edema nor pericholecystic fluid. The common hepatic duct isnot dilated, measuring 3-4mm at the level of belem hepatis. PANCREAS: There is no evidence of pancreatic mass nor dilatation of the pancreatic duct. RIGHT KIDNEY:No evidence of solid mass, calculus, nor hydronephrosis. No cortical cysts evident. IMPRESSION: 1. No evidence of cholelithiasis nor dilatation of the biliary tree. 2. No other significant ultrasound findings in the right upper quadrant. 3. There is no ascites. DATA REPOSITORY:
[2025-02-05] MEDS: Famotidine 20 MG TAB 40 MG PO (08:55)
--- NOTE | 2025-02-05 15:49 | W.ED.FU ---
Follow Up Plan: Patient did not need any refills of her antihypertensive medications. She did need a trazodone refill which I provided. Her blood pressure was elevated at the time of discharge. She was not having chest pain or headache to suggest endorgan damage.
== END 2025-02-05 09:12 | disposition home or self-care (01) ==
PROVIDERS: Emergency Medicine; Emergency Provider Emergency Medicine; PCP Nurse Practitioner Family
DX: R10.11 Right upper quadrant pain (principal); I10 Essential (primary) hypertension
CPT/HCPCS: 00123; 36415; 80053; 81025; 83690; 93005; 96361; 96374; 96375; 96376; 99285; 74177; 76705; 83735; 84484; 85025; 93010; J2270; J2405; J2470; J3490

== ENCOUNTER 2025-05-06 16:24 | Observation (INO) | payer BC, SELFPAY ==
[2025-05-06] VITALS (53 sets, daily range): BP systolic 144–212; BP diastolic 93–140; PULSE 83–101; RESP 12–30; TEMP 36.6–37; O2SAT 94–100
--- NOTE | 2025-05-06 16:30 | RT.EKG_ITS ---
APPROVED REPORT Exam: Resting ECG Reason for Exam: Chest pain Patient Location: E HR:88 bpm ECG Measurements Heart Rate 88 AXIS SD 156 P 52 QRSd 84 QRS 23 QT 387 T -1 QTc 469 Conclusion Sinus rhythm, rate 88 No interval abnormalities No STEMI T wave inversions lead III, aVF, V5-6 new from priors
--- NOTE | 2025-05-06 16:38 | W.ED.GENAD ---
Discharge Plan Disposition Patient Disposition: Admit to [facility] Discharge Details Clinical Impression: Hypertensive emergency, Lung nodule seen on imaging study Admit Date/Time: 05/06/25 19:46 Admit Provider: Darvin Blas Attending Provider: Darvin Blas Primary Care Provider: Theresa Trejo ED Provider: Hilda Monk Discharge Data Discharge Date/Time-TO BE ENTERED AT DEPARTURE: 05/06/25 21:31 HPI General Date/Time Provider Initiated Documentation: 05/06/25 16:32. HPI Narrative: Meghna is a 34-year-old female who presents to the emergency department today for evaluation of elevated blood pressure accompanied by right sided headache and right sided posterior rib pain. Symptoms started yesterday when she experienced right jainism headache with BP 205/151 at work. Took clonidine and rested. Vomited once due to headache. Woke up again this morning with a milder version of same headache. While driving her kids to school she experienced stabbing right sided chest pain that lasted 15 minutes, unable to identify any aggravating or relieving factors. No accompanying diaphoresis, dizziness, radiation of pain. The pain has since moved to her right posterior rib cage, she is tender to palpation in that area. Denies recent fever/chills, congestion, sore throat, cough, nausea, abdominal pain, change in bowel or bladder function, change in p.o. intake, change in menstrual cycle. No known trauma or inciting incident. Has not had similar chest pain or rib pain in the past. Managing blood pressure with three medications: labetalol (last dose this morning, twice daily), hydralazine (TID, last dose at noon), and clonidine (PRN, last dose 0900 hours today). Scheduled to meet Dr. Neo Lagunas on 05/31/2025. Has been checking her blood pressure daily since her last appointment 3 weeks ago, says it has been consistently high. R Unclear etiology of hypertension. She denies other associated problems or history of cardiac disease, kidney disease, lung disease. I did review patient's previous medical records. She was evaluated at [facility] emergency department on 10/17/2024 for abdominal pain and hypertension, was given 2 doses of 20 mg IV labetalol with good improvement of elevated blood pressure. Abdominal exam was unremarkable. Patient's PCP visit from 05/02/2024, she was seen for elevated blood pressure of 2 8/140 with no other symptoms. She was instructed to take her labetalol twice a day, hydralazine 3 times a day, and clonidine 3 times a day as needed for high BP. She has been referred to cardiology for evaluation of resistant hypertension. A duplex ultrasound was performed on 08/04/2024, no renal artery stenosis or abnormalities noted at that time. Related Data Home Medications ?Medication ?Instructions ?Recorded ?Confirmed labetalol 100 mg tablet 100 mg PO BID 03/12/24 05/06/25 trazodone 50 mg tablet 100 mg PO DAILY 03/12/24 05/06/25 hydralazine 25 mg tablet 50 mg PO TID 05/19/24 05/06/25 sertraline 25 mg tablet 25 mg PO DAILY 05/19/24 05/06/25 clonidine HCl 0.1 mg tablet 0.1 mg PO TID PRN 07/07/24 05/06/25 famotidine 40 mg tablet 40 mg PO BID #60 tabs 02/05/25 05/06/25 trazodone 50 mg tablet 50 mg PO QHS PRN #20 tabs 02/05/25 05/06/25 Previous Rx's ?Medication ?Instructions ?Recorded famotidine 40 mg tablet 40 mg PO BID #60 tabs 02/05/25 trazodone 50 mg tablet 50 mg PO QHS PRN #20 tabs 02/05/25 Allergies Allergy/AdvReac Type Severity Reaction Status Date / Time No Known Allergies Allergy Verified 05/06/25 16:31 General Stated Complaint: Chest Pain CONSUELO: 2 Exam Const General: cooperative, healthy appearing, comfortable, no acute distress and well developed Nutritional Appearance: average body habitus and well nourished Orientation: alert and oriented x3 HENMT Head: normal to inspection Ears: hearing grossly normal bilaterally General nose exam: external nose normal Face and sinus: normal facial exam Mouth: oral mucosae normal and moist mucous membranes Neck Neck: normal visual inspection Chest Chest: no crepitus and tenderness (R posterior ribs) Resp Effort & Inspection: normal respiratory effort and able to speak in complete sentences Auscultation: clear to auscultation bilaterally Cardio Rate: regular rate Rhythm: regular rhythm Pulses: radial pulses present GI Inspection: normal to inspection and non-distended Palpation: soft, no guarding and nontender Course Vital Signs Vital signs: Vital Signs Temperature 36.7 C 05/06/25 16:27 Pulse 95 H 05/06/25 16:27 Respiratory Rate 18 05/06/25 16:27 Blood Pressure 183/120 H 05/06/25 16:27 Pulse Oximetry 99 05/06/25 16:27 Temperature 36.7 C 05/06/25 16:27 Temperature Source Tympanic 05/06/25 16:27 Pulse 95 H 05/06/25 16:27 Respiratory Rate 18 05/06/25 16:27 Blood Pressure 183/120 H 05/06/25 16:27 Blood Pressure Position Sitting 05/06/25 16:27 Pulse Oximetry 99 05/06/25 16:27 Oxygen Delivery Method Room Air 05/06/25 16:27 Oxygen Flow Rate 0 05/06/25 16:27 Pain Level 6 05/06/25 16:27 Medical Decision Making Initial Assessment: 34-year-old female with chest pain (now resolved), R sided posterior rib pain, resistant hypertension, and headache. Differential Diagnosis includes but is not limited to: ACS, PE, hypertensive emergency, musculoskeletal pain, migraine, dehydration, electrolyte imbalance, viral illness such as COVID-19, treatment resistant hypertension ED Course: -EKG obtained - Blood work obtained. - Chest CT obtained - Antihypertensives given I independently interpreted the following tests: EKG reassuring, normal sinus rhythm, no changes consistent with acute ischemia, no changes from prvious on 02/05/25. CMP notable for mild hypokalemia, potassium 3.0. CBC, serial troponins, BNP, magnesium, hCG, UA all unremarkable. COVID-19 and flu negative. CTA chest notable for nodular groundglass infiltrate in right upper lobe, no other focal lung findings. While in the emergency department Meghna received hydralazine 5 mg IV push with improvement of symptoms. Labetalol 20 mg IV given x 2, with good improvement of symptoms and reduction of blood pressure. Workup today remarkable for treatment resistant hypertension requiring multiple doses of IV antihypertensives for control of symptoms and blood pressure. Unclear etiology of infiltrate in right upper lobe, patient does not endorse any recent viral symptoms. Discussed case with Dr. Blas, patient to be admitted for management and further evaluation of severely elevated blood pressure Clinical Impression: - Hypertensive emergency with headache Disposition: Admit to [facility] Patient consented to the use of PERI Imaging Data Radiologic Study: Radiologist's impression: Exam(s) CT CHEST PE CTA EXAM: CT CHEST PE CTA CLINICAL HISTORY: CP, R posterior rib pain. TECHNIQUE: Imaging Protocol: CT angiography of the chest was performed using pulmonary embolus protocol. Multi planar reconstructions were performed. CONTRAST MATERIAL: Intravenous: Omnipaque 350 Contrast volume: 100 cc COMPARISON: CT CT CHEST PE CTA from 02/15/2023 FINDINGS: CHEST: PULMONARY ARTERIES: There are no intraluminal filling defects to suggest acute pulmonary emboli. LUNGS: There is a nodular ground-glass infiltrate in the right upper lobe which measures 1.2 by 0.9 cm. There are no other focal right lung findings and there are no focal left lung findings. No pleural effusions. No pneumothorax. No significant focal findings in trachea and mainstem bronchi. There is no bronchiectasis.. MEDIASTINUM: There is no hilar nor mediastinal adenopathy. CARDIAC: Heart size is upper normal. There is no pericardial effusion.Caliber of the thoracic aorta is within normal limits. No evidence of dissection. There is no significant shift of the interventricular septum. PARTIALLY VISUALIZED UPPERMOST ABDOMEN: No obvious findings OSSEOUS: No fractures.No significant osseous lesions.. IMPRESSION: 1. No evidence of acute pulmonary emboli. No evidence of pulmonary infarction. 2. There is a 12 x 9 mm nodular infiltrate in the right upper lobe which requires appropriate follow-up imaging. No left lung findings. No pleural effusions. No intrathoracic adenopathy 3. No evidence of aortic dissection nor pericardial effusion. Report called by myself to ER provider 05/06/2025 at 7:07 p.m. [facility] All Active Problems (Updated 05/06/25 @ 22:38 by Hilda Helm) Lung nodule seen on imaging study (Acute) Hypertensive emergency (Acute) Depot contraception (Acute) DepoProvera inj q 3mo. Sleep walking (Acute) While taking ambien - normal sleep study 09/2019 BMI 30.0-30.9,adult (Acute) Medical History Essential hypertension MRSA (methicillin resistant Staphylococcus aureus) infection Vulvar abscess 04/2018. Rx with Bactrim. Surgical History History of section Family History Mother Essential hypertension Hyperlipidemia Stroke Maternal Aunt Breast cancer at 52 Social History Smoking/Tobacco Use Status: Never Second Hand Exposure: Yes Smoking risk assessment performed?: Yes Alcohol Intake: former Drug use: Never Substance use type: does not use Adopted: No Foster care: No Household members: significant other Housing: house What is your relationship status?: living with partner Panel score (0-1 are the most socially isolated patients): 1 What type of physical activity do you participate in: walking Duration: 30-45 minutes/day Frequency: other Details: 2-3 X MONTH Nesha/Yazidism: ALEVISM Seatbelt use: always Do you feel safe at home: Yes Do you feel safe in your relationship?: Yes Female Reproductive History Menstrual control method: progesterone injection History History 0 Para Hx # Term Pregnancies Multiple births Hx # Pregnancies Ectopic pregnancies AB induced Hx Number of Living Children AB spontaneous
--- NOTE | 2025-05-06 17:00 | DI.CT_ITS ---
Exam(s) CT HEAD WO EXAM: CT HEAD WO CLINICAL HISTORY: severe HILL, HTN. TECHNIQUE: Imaging Protocol: Axial computed tomography images with coronal and sagittal reformatted images were created and reviewed COMPARISON: CT HEAD AND CSPINE W/O CONTRAST from 01/16/2018 FINDINGS: There are no skull fractures. There is no fluid in the visualized paranasal sinuses. There is no evidence of intracranial hemorrhage, mass effect, or shift of midline structures. There are no extra-axial fluid collections. The ventricles are not enlarged or shifted and there is no blood within the ventricular system nor within the basal cisterns. IMPRESSION: No acute intracranial findings on this noninfused CT scan of the brain. Report called to ER provider 05/06/2025 at 7:01 p.m. RADIATION DOSE DELIVERED: 887.61mGy.cm Total DLP DATA REPOSITORY: All CT scans at this facility are submitted to the National Radiology Data Registry (NRDR) Dose Index Registry (DIR) with the [employer] (ACR). RADIATION OPTIMIZATION: All CT scans at this facility use at least one of these dose optimization techniques: automated exposure control; mA and/or kV adjustment per patient size (includes targeted exams where dose is matched to clinical indication); or iterative reconstruction.
[2025-05-06] MEDS: hydrALAZINE 20 MG/ML VIAL 5 MG IVP (17:38)
[2025-05-06 17:41] LABS: Abs Immature Grans 0.03 10^3/uL (0.0-0.06); HCT 33.1 % (36.0-46.0); HGB 11.4 g/dL (11.2-15.7); Immature Grans % 0.3 %; MCH 30.2 pg (27.0-33.0); MCHC 34.4 % (32.0-36.0); MCV 88 fL (80-95); MPV 9.7 fL (8.0-11.0); Platelet Count 311 10^3/uL (130-400); RBC 3.78 10^6/uL (3.93-5.22); RDW 12.0 % (11.7-14.6); RDW-SD 38.4 fL; WBC 8.68 10^3/uL (4.4-10.8)
[2025-05-06] MEDS: Labetalol 100 MG/20 ML VIAL 20 MG IVP ×2 (18:00→18:34)
[2025-05-06 18:13] LABS: ALT 31 U/L (14-59); AST 21 U/L (15-37); Albumin 3.4 g/dL (3.4-5.0); Alkaline Phosphatase 92 U/L (46-116); Anion Gap 7.7 mmol/L (3-11); BUN 8 mg/dL (7-18); Bilirubin, Total 0.3 mg/dL (0.2-1.0); CO2 28.3 mmol/L (21.0-32.0); Calcium 9.1 mg/dL (8.5-10.1); Chloride 103 mmol/L (98-107); Estimated GFR 99.09 (mL/min/1.73m2); Glucose 106 mg/dL (74-106); Magnesium 1.9 mg/dL (1.8-2.4); NT-proBNP 115 pg/mL (<300); Potassium 3.0 mmol/L (3.5-5.1); Sodium 139 mmol/L (136-145); Total Protein 7.0 g/dL (6.4-8.2); Troponin I 16 ng/L (<or=51)
[2025-05-06 18:27] LABS: Glucose Negative (Negative)
--- NOTE | 2025-05-06 18:34 | DI.CT_ITS ---
Exam(s) CT CHEST PE CTA EXAM: CT CHEST PE CTA CLINICAL HISTORY: CP, R posterior rib pain. TECHNIQUE: Imaging Protocol: CT angiography of the chest was performed using pulmonary embolus protocol. Multi planar reconstructions were performed. CONTRAST MATERIAL: Intravenous: Omnipaque 350 Contrast volume: 100 cc COMPARISON: CT CT CHEST PE CTA from 02/15/2023 FINDINGS: CHEST: PULMONARY ARTERIES: There are no intraluminal filling defects to suggest acute pulmonary emboli. LUNGS: There is a nodular ground-glass infiltrate in the right upper lobe which measures 1.2 by 0.9 cm. There are no other focal right lung findings and there are no focal left lung findings. No pleural effusions. No pneumothorax. No significant focal findings in trachea and mainstem bronchi. There is no bronchiectasis.. MEDIASTINUM: There is no hilar nor mediastinal adenopathy. CARDIAC: Heart size is upper normal. There is no pericardial effusion.Caliber of the thoracic aorta is within normal limits. No evidence of dissection. There is no significant shift of the interventricular septum. PARTIALLY VISUALIZED UPPERMOST ABDOMEN: No obvious findings OSSEOUS: No fractures.No significant osseous lesions.. IMPRESSION: 1. No evidence of acute pulmonary emboli. No evidence of pulmonary infarction. 2. There is a 12 x 9 mm nodular infiltrate in the right upper lobe which requires appropriate follow-up imaging. No left lung findings. No pleural effusions. No intrathoracic adenopathy 3. No evidence of aortic dissection nor pericardial effusion. Report called by myself to ER provider 05/06/2025 at 7:07 p.m. RADIATION DOSE DELIVERED: 233.73mGy.cm Total DLP DATA REPOSITORY: All CT scans at this facility are submitted to the National Radiology Data Registry (NRDR) Dose Index Registry (DIR) with the [employer] (ACR). RADIATION OPTIMIZATION: All CT scans at this facility use at least one of these dose optimization techniques: automated exposure control; mA and/or kV adjustment per patient size (includes targeted exams where dose is matched to clinical indication); or iterative reconstruction.
[2025-05-06] MEDS: Potassium Bicarbonate/Cit AC 25 MEQ TABLET.EFF PO (18:35)
[2025-05-06] MEDS: Normal Saline - Diluent 50 ML VIAL IJ (18:45)
[2025-05-06] MEDS: Normal Saline Flush 10 ML SYR IVP ×2 (18:46→22:25)
[2025-05-06] MEDS: Omnipaque 350 MG/ML 100 ML BTL IJ (18:46)
[2025-05-06 19:01] LABS: Troponin I 16 ng/L (<or=51)
--- NOTE | 2025-05-06 19:34 | W.PM.HP.N ---
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 She has a diagnosis of uncontrolled hypertension of the last 2 years with sudden onset 2 years ago. She [place] [facility] [place] has had evaluation for renal artery stenosis which was negative. She does not appear to have had a pheochromocytoma evaluation and 24-hour urine will be obtained for catecholamine. She also has recurrent right-sided headache in the judaism area and this could be associated cell arteritis with sed rate to be checked. She appears to be responding to labetalol which can be increase in dosing now to be at 200 mg twice daily instead of 100 mg twice daily. Her other medications will be continued the same. If needed, she can see cardiology locally but may want to continue with [facility]. Of note, her TSH is slightly elevated with low free T4. This should be further evaluated as contributing to her blood pressure changes though this would be hypothyroidism which does not typically cause elevated blood pressure. Patient also had mild hypokalemia with IV and oral repletion in the ED. She is not on chronic diuretics. She is a full code. (2) Essential hypertension: Assessment and plan: Uncontrolled and verbal with patient having adjusting triple medical therapy. She is responding to labetalol presently and this will be continued. Continue evaluation by cardiology at [facility]. 24-hour urine for catecholamines as discussed. (3) Hypokalemia: Start date: 05/06/25 Status: Acute Assessment and plan: This may be nutritional, advised high potassium diet. Patient is not on diuretics. (4) Elevated TSH: Start date: 05/06/25 Status: Acute Assessment and plan: TSH is mildly elevated compared to previous measurements with low free T4. Further evaluation should be done as an outpatient. This most likely is not contributing to her uncontrolled hypertension being possible acquired hypothyroidism rather than hyperthyroidism. TSH measurements were normal and not suppressed in the past making previous thyroiditis as a cause of this change unlikely. (5) GERD (gastroesophageal reflux disease): Status: Chronic Assessment and plan: Continue famotidine. (6) Right upper lobe pulmonary nodule: Start date: 05/06/25 Status: Acute Assessment and plan: Less than 2 cm right upper lobe nodule noted on CT further evaluation and reimaging as appropriate the patient having 24-hour urine for catecholamine measurement. (7) Depression: Status: Chronic Assessment and plan: Continue outpatient therapy. Patient does take trazodone at night for sleep. History of Present Illness History of Present Illness Chief Complaint: Acute right-sided headache with elevated blood pressure measured at work. Narrative: This is a 34-year-old female patient who has a 2-year history of onset of elevated blood pressure which is difficult to control with medical therapy. She has been seen at [facility] [place] this but has not been fully evaluated for secondary hypertension. She did have negative renal workup. She is on a triple therapy with labetalol 200 mg daily and split dosing having worked best with failed calcium channel mounika in the past. She also is on hydralazine 3 times daily and clonidine as needed. She often has a right-sided headache with her increased blood pressure and a day prior to presentation was at work with the onset of a right-sided headache with her blood pressure measuring 205/151. She took her as needed clonidine and rested with some improvement. She awakened the day of presentation with a slightly less severe version of a right-sided headache while driving her kids to school. She often does have a right-sided headache with her increased blood pressure and also occasional blurred vision. She was also complaining of right-sided posterior rib pain from presentation to the ED and CT of the chest did reveal a small nodule in the right which may or may not be associated. She denies any chest pain with her increased blood pressure. She was given IV hydralazine which was ineffective in the ED to change her blood pressure elevations but did respond to IV labetalol. She is on a low-dose of labetalol and can be advanced up to 800 mg daily. She will be observed for observation while increasing her labetalol to 200 mg twice daily instead of 100 mg twice daily. Medical therapy will be continued the same. She will start 24-hour urine for catecholamine to evaluate for pheochromocytoma. Her right lung nodule may need further evaluation. She had a recent negative abdominal CT and ultrasound. She did not complain of her right posterior chest pain during my interview. She does have some increased stress in her life with children, work as a patient case manager and the [employer] and being busy. She appears to cope well. She is a full code. Review of Systems Narrative: 13 point review of systems otherwise unrevealing or stable. Patient does have some slight nausea and vomiting the day prior to presentation with her headache. PFSH All Active Problems (Updated 05/07/25 @ 06:57 by Darvin Blas) Right upper lobe pulmonary nodule (Acute) Elevated TSH (Acute) Hypokalemia (Acute) Depression (Chronic) GERD (gastroesophageal reflux disease) (Chronic) Lung nodule seen on imaging study (Acute) Hypertensive emergency (Acute) Depot contraception (Acute) DepoProvera inj q 3mo. Sleep walking (Acute) While taking ambien - normal sleep study 09/2019 BMI 30.0-30.9,adult (Acute) Medical History Essential hypertension MRSA (methicillin resistant Staphylococcus aureus) infection Vulvar abscess 04/2018. Rx with Bactrim. Surgical History History of section Family History Mother Essential hypertension Hyperlipidemia Stroke Maternal Aunt Breast cancer at 52 Social History Smoking/Tobacco Use Status: Never Second Hand Exposure: Yes Smoking risk assessment performed?: Yes Alcohol Intake: former Drug use: Never Substance use type: does not use Adopted: No Foster care: No Household members: significant other Housing: house What is your relationship status?: living with partner Panel score (0-1 are the most socially isolated patients): 1 What type of physical activity do you participate in: walking Duration: 30-45 minutes/day Frequency: other Details: 2-3 X MONTH Nesha/Druze: [employer] Seatbelt use: always Do you feel safe at home: Yes Do you feel safe in your relationship?: Yes Female Reproductive History Menstrual control method: progesterone injection History History 0 Para Hx # Term Pregnancies Multiple births Hx # Pregnancies Ectopic pregnancies AB induced Hx Number of Living Children AB spontaneous Meds Allergies and Home Medications Allergies Allergy/AdvReac Type Severity Reaction Status Date / Time No Known Allergies Allergy Verified 05/06/25 16:31 Home Medications ?Medication ?Instructions ?Recorded ?Confirmed ?Type labetalol 100 mg tablet 100 mg PO BID 03/12/24 05/06/25 History trazodone 50 mg tablet 100 mg PO DAILY 03/12/24 05/06/25 History hydralazine 25 mg tablet 50 mg PO TID 05/19/24 05/06/25 History sertraline 25 mg tablet 25 mg PO DAILY 05/19/24 05/06/25 History clonidine HCl 0.1 mg tablet 0.1 mg PO TID PRN 07/07/24 05/06/25 History famotidine 40 mg tablet 40 mg PO BID #60 tabs 02/05/25 05/06/25 Rx trazodone 50 mg tablet 50 mg PO QHS PRN #20 tabs 02/05/25 05/06/25 Rx Exam Narrative Exam Narrative: General: Patient is in no acute distress with no significant headache at the time of my exam. She is alert and oriented x 3. She does have a flattened affect. HEENT: Normocephalic, eyes with pupils equal and reactive light symmetrically, extraocular movement intact and sclera anicteric. Oropharynx with moist Koza and good dentition. Neck: Supple without JVD. Back: Normal posture without CVA tenderness. Lungs: Clear to auscultation percussion with no focalized rales or rhonchi. No expiratory wheeze. Breast: Exam deferred. Heart: Regular rate and rhythm with no murmurs or gallops appreciated. Abdomen: Normal contour, soft nontender to palpation with no palpable hepatosplenomegaly. Bowel sounds positive in all quadrants. Genitalia/rectal: Exam deferred. Extremities: Without clubbing, cyanosis or pitting edema. Peripheral pulses intact. Skin: Brown color, warm and dry. Neuro: Cranial nerves II through XII gross intact, no focal motor deficits. No tremor. Psych: Flattened affect but normal mood. No abnormal thought processes. Remote and recent memory intact. Results Imaging Imaging Studies: EXAM: CT CHEST PE CTA Date of exam: 05/06/2025 CLINICAL HISTORY: CP, R posterior rib pain. TECHNIQUE: Imaging Protocol: CT angiography of the chest was performed using pulmonary embolus protocol. Multi planar reconstructions were performed. CONTRAST MATERIAL: Intravenous: Omnipaque 350 Contrast volume: 100 cc COMPARISON: CT CT CHEST PE CTA from 02/15/2023 FINDINGS: CHEST: PULMONARY ARTERIES: There are no intraluminal filling defects to suggest acute pulmonary emboli. LUNGS: There is a nodular ground-glass infiltrate in the right upper lobe which measures 1.2 by 0.9 cm. There are no other focal right lung findings and there are no focal left lung findings. No pleural effusions. No pneumothorax. No significant focal findings in trachea and mainstem bronchi. There is no bronchiectasis.. MEDIASTINUM: There is no hilar nor mediastinal adenopathy. CARDIAC: Heart size is upper normal. There is no pericardial effusion.Caliber of the thoracic aorta is within normal limits. No evidence of dissection. There is no significant shift of the interventricular septum. PARTIALLY VISUALIZED UPPERMOST ABDOMEN: No obvious findings OSSEOUS: No fractures.No significant osseous lesions.. IMPRESSION: 1. No evidence of acute pulmonary emboli. No evidence of pulmonary infarction. 2. There is a 12 x 9 mm nodular infiltrate in the right upper lobe which requires appropriate follow-up imaging. No left lung findings. No pleural effusions. No intrathoracic adenopathy 3. No evidence of aortic dissection nor pericardial effusion. EXAM: CT HEAD WO Date of exam: 05/06/2025 CLINICAL HISTORY: severe HILL, HTN. TECHNIQUE: Imaging Protocol: Axial computed tomography images with coronal and sagittal reformatted images were created and reviewed COMPARISON: CT HEAD AND CSPINE W/O CONTRAST from 01/16/2018 FINDINGS: There are no skull fractures. There is no fluid in the visualized paranasal sinuses. There is no evidence of intracranial hemorrhage, mass effect, or shift of midline structures. There are no extra-axial fluid collections. The ventricles are not enlarged or shifted and there is no blood within the ventricular system nor within the basal cisterns. IMPRESSION: No acute intracranial findings on this noninfused CT scan of the brain. EXAM: CT ABDOMEN PELVIS W Date exam: 8:02/05/2025: CLINICAL HISTORY: 36 hours of worsening abd pain; tender RUQ. TECHNIQUE: Imaging Protocol: Axial computed tomography images with coronal and sagittal reformatted images were created and reviewed CONTRAST MATERIAL: Intravenous: Omnipaque-350 75cc Oral: None COMPARISON: CT CT CHEST PE CTA from 02/15/2023 FINDINGS: VISUALIZED LUNG BASES: No nodules nor pleural effusions evident. ABDOMEN: There is no ascites. LIVER: There are no focal hepatic lesions evident. No dilated intrahepatic ducts. GALLBLADDER/BILIARY: No obvious gallbladder pathology. CBD is not dilated. PANCREAS: No evidence of pancreatic mass nor dilatation of the pancreatic duct. SPLEEN: Spleen is not enlarged. No obvious intrasplenic lesions. Splenic and portal veins are patent. ADRENALS: There are no significant adrenal masses. KIDNEYS:No cysts evident. No solid renal masses. No calculi nor hydronephrosis.. ABDOMINAL AORTA: Abdominal aorta is not enlarged. LYMPH NODES:There is no retroperitoneal nor paraaortic adenopathy. ABDOMINAL WALL: There is anterior abdominal wall umbilical fat only containing hernia. GI: There is no evidence of bowel obstruction, free air, nor abscess. PELVIS: GI: No evidence of appendicitis.No evidence of sigmoid diverticulitis. LYMPH NODES: There is no intrapelvic nor inguinal adenopathy. REPRODUCTIVE: There is an air column in the vagina consistent with a tampon. Uterus size normal. No abnormal adnexal findings and no free fluid in the pelvis. URINARY BLADDER: No calculi nor obvious masses evident OSSEOUS: No fractures and no significant osseous lesions. IMPRESSION: 1. No significant acute findings in the abdomen and pelvis. 2. Tampon noted in the vagina. Labs 05/06/25 17:32 05/06/25 17:32 Labs: Laboratory Results - last 24 hr 05/06/25 05/06/25 05/06/25 16:50 17:32 18:40 WBC 8.68 RBC 3.78 L Hgb 11.4 Hct 33.1 L MCV 88 MCH 30.2 MCHC 34.4 RDW 12.0 Plt Count 311 MPV 9.7 Immature Gran % 0.3 Neutrophils % 56.6 Lymphocytes % 31.6 Monocytes % 8.3 Eosinophils % 2.9 Basophils % 0.3 Nucleated RBC % 0.0 Absolute Neutrophils 4.91 Absolute Lymphocytes 2.74 Absolute Monocytes 0.72 Absolute Eosinophils 0.25 Absolute Basophils 0.03 Sodium 139 Potassium 3.0 L Chloride 103 Carbon Dioxide 28.3 Anion Gap 7.7 BUN 8 Creatinine 0.8 Est GFR (CKD-EPI 2020) 99.09 Glucose 106 Calcium 9.1 Magnesium 1.9 Total Bilirubin 0.3 AST 21 ALT 31 Alkaline Phosphatase 92 Troponin I 16 16 NT-Pro-B Natriuret Pep 115 Total Protein 7.0 Albumin 3.4 Urine Color Yellow Urine Clarity Clear Urine pH 7.0 Ur Specific [place] 1.010 Urine Protein Negative Urine Ketones Negative Urine Blood Negative Urine Nitrite Negative Urine Bilirubin Negative Urine Urobilinogen 0.2 Ur Leukocyte Esterase Negative Urine Glucose Negative 05/06/25 19:56 WBC RBC Hgb Hct MCV MCH MCHC RDW Plt Count MPV Immature Gran % Neutrophils % Lymphocytes % Monocytes % Eosinophils % Basophils % Nucleated RBC % Absolute Neutrophils Absolute Lymphocytes Absolute Monocytes Absolute Eosinophils Absolute Basophils Sodium Potassium Chloride Carbon Dioxide Anion Gap BUN Creatinine Est GFR (CKD-EPI 2020) Glucose Calcium Magnesium Total Bilirubin AST ALT Alkaline Phosphatase Troponin I Cancelled NT-Pro-B Natriuret Pep Total Protein Albumin Urine Color Urine Clarity Urine pH Ur Specific [place] Urine Protein Urine Ketones Urine Blood Urine Nitrite Urine Bilirubin Urine Urobilinogen Ur Leukocyte Esterase Urine Glucose Last Vital Signs Temp 36.7 C 05/06/25 16:27 Pulse 87 05/06/25 18:41 Resp 22 05/06/25 18:41 BP 167/93 H 05/06/25 18:41 Pulse Ox 100 05/06/25 18:41 Time Spent Time spent with Patient: >75 minutes Time was spent: preparing to see the patient(eg.review tests), obtaining and/or reviewing separately otained hiistory, ordering medications,tests, procedures, indepentently interpreting results, counseling the patient and care coordination
[2025-05-06 20:32] LABS: Cannabinoids THC Negative (Negative); METHADONE URINE SCREEN Negative (Negative)
--- NOTE | 2025-05-06 21:31 | W.PC.ACHO ---
Registration Status: ADM ELVIN Primary Language: Preferred Language: Croatian ED Information & Data Chief Complaint Chest Pain 05/06/25 16:45 Triage Note Pt reports HILL and pain on R 05/06/25 16:27 sided rib and CP. CP has since resolved. Pt states she took BP at home and was 205/151. Pt took 0.1 Clonidine Medical / Surgical History (Last Reviewed 05/06/25 @ 19:35 by Darvin Blas) Essential hypertension MRSA (methicillin resistant Staphylococcus aureus) infection (Last Reviewed 05/06/25 @ 19:35 by Darvin Blas) History of section Most Recent Vital Signs Temperature 36.7 C 05/06/25 16:27 Temperature Source Tympanic 05/06/25 16:27 Pulse 93 H 05/06/25 21:17 Pulse 92 H 05/06/25 21:17 Respiratory Rate 22 05/06/25 21:17 Blood Pressure 166/98 H 05/06/25 21:17 Blood Pressure Mean 120 05/06/25 21:17 Blood Pressure Position Sitting 05/06/25 16:27 Pulse Oximetry 100 05/06/25 21:17 Oxygen Delivery Method Room Air 05/06/25 16:27 Oxygen Flow Rate 0 05/06/25 16:27 Pain Level 6 05/06/25 16:27 Allergies No Known Allergies Allergy (Verified 05/06/25 16:31) Active Medications Generic Name Dose Route Start Last Admin Trade Name Freq PRN Reason Stop Dose Admin Iohexol 100 ml 05/06/25 18:45 05/06/25 18:46 Omnipaque 350 Mg/Ml 100 Ml Btl IJ 06/05/25 23:59 100 ml DIRECTED ZO Administration Sodium Chloride 0 ml 05/06/25 18:44 05/06/25 18:46 Normal Saline Flush 10 Ml Syr IVP 10 ml PRN PRN Administration Sodium Chloride 50 ml 05/06/25 18:45 05/06/25 18:45 Normal Saline - Diluent 50 Ml Vial IJ 50 ml DIRECTED ZO Administration IV IV Catheter Type [Right Saline Lock Antecubital] IV Catheter Gauge [Right 18 Antecubital] Diagnostics 05/06/25 05/06/25 05/06/25 Range/Units 19:56 18:40 17:32 WBC 8.68 (4.4-10.8) 10^3/uL RBC 3.78 L (3.93-5.22) 10^6/uL Hgb 11.4 (11.2-15.7) g/dL Hct 33.1 L (36.0-46.0) % MCV 88 (80-95) fL MCH 30.2 (27.0-33.0) pg MCHC 34.4 (32.0-36.0) % RDW 12.0 (11.7-14.6) % Plt Count 311 (130-400) 10^3/uL MPV 9.7 (8.0-11.0) fL Immature Gran % 0.3 % Neutrophils % 56.6 % Lymphocytes % 31.6 % Monocytes % 8.3 % Eosinophils % 2.9 % Basophils % 0.3 % Nucleated RBC % 0.0 (0.0-0.3) % Absolute Neutrophils 4.91 (1.2-6.7) 10^3/uL Absolute Lymphocytes 2.74 (1.2-3.4) 10^3/uL Absolute Monocytes 0.72 (0.1-0.8) 10^3/uL Absolute Eosinophils 0.25 (0.0-0.7) 10^3/uL Absolute Basophils 0.03 (0.0-0.2) 10^3/uL Sodium 139 (136-145) mmol/L Potassium 3.0 L (3.5-5.1) mmol/L Chloride 103 (98-107) mmol/L Carbon Dioxide 28.3 (21.0-32.0) mmol/L Anion Gap 7.7 (3-11) mmol/L BUN 8 (7-18) mg/dL Creatinine 0.8 (0.55-1.02) mg/dL Est GFR (CKD-EPI 2020) 99.09 (mL/min/1.73m2) Glucose 106 (74-106) mg/dL Calcium 9.1 (8.5-10.1) mg/dL Magnesium 1.9 (1.8-2.4) mg/dL Total Bilirubin 0.3 (0.2-1.0) mg/dL AST 21 (15-37) U/L ALT 31 (14-59) U/L Alkaline Phosphatase 92 (46-116) U/L Troponin I Cancelled 16 16 (<or=51) ng/L NT-Pro-B Natriuret Pep 115 (<300) pg/mL Total Protein 7.0 (6.4-8.2) g/dL Albumin 3.4 (3.4-5.0) g/dL TSH Pending Urine Color (Yellow) Urine Clarity (Clear) Urine pH (5-8) Ur Specific [place] (1.005-1.025) Urine Protein (Neg-Trace) mg/dL Urine Ketones (Negative) mg/dL Urine Blood (Negative) Urine Nitrite (Negative) Urine Bilirubin (Negative) Urine Urobilinogen (Up to 0.2) mg/dL Ur Leukocyte Esterase (Negative) Urine Glucose (Negative) mg/dL Urine Opiates Screen (Negative) Urine Methadone Screen (Negative) Ur Barbiturates Screen (Negative) Ur Tricyclics Screen (Negative) Ur Amphetamines Screen (Negative) U Benzodiazepines Scrn (Negative) Urine Cocaine Screen (Negative) Ur THC Screen (Negative) Add-On Test Request Pending 05/06/25 Range/Units 16:50 WBC (4.4-10.8) 10^3/uL RBC (3.93-5.22) 10^6/uL Hgb (11.2-15.7) g/dL Hct (36.0-46.0) % MCV (80-95) fL MCH (27.0-33.0) pg MCHC (32.0-36.0) % RDW (11.7-14.6) % Plt Count (130-400) 10^3/uL MPV (8.0-11.0) fL Immature Gran % % Neutrophils % % Lymphocytes % % Monocytes % % Eosinophils % % Basophils % % Nucleated RBC % (0.0-0.3) % Absolute Neutrophils (1.2-6.7) 10^3/uL Absolute Lymphocytes (1.2-3.4) 10^3/uL Absolute Monocytes (0.1-0.8) 10^3/uL Absolute Eosinophils (0.0-0.7) 10^3/uL Absolute Basophils (0.0-0.2) 10^3/uL Sodium (136-145) mmol/L Potassium (3.5-5.1) mmol/L Chloride (98-107) mmol/L Carbon Dioxide (21.0-32.0) mmol/L Anion Gap (3-11) mmol/L BUN (7-18) mg/dL Creatinine (0.55-1.02) mg/dL Est GFR (CKD-EPI 2020) (mL/min/1.73m2) Glucose (74-106) mg/dL Calcium (8.5-10.1) mg/dL Magnesium (1.8-2.4) mg/dL Total Bilirubin (0.2-1.0) mg/dL AST (15-37) U/L ALT (14-59) U/L Alkaline Phosphatase (46-116) U/L Troponin I (<or=51) ng/L NT-Pro-B Natriuret Pep (<300) pg/mL Total Protein (6.4-8.2) g/dL Albumin (3.4-5.0) g/dL TSH Urine Color Yellow (Yellow) Urine Clarity Clear (Clear) Urine pH 7.0 (5-8) Ur Specific [place] 1.010 (1.005-1.025) Urine Protein Negative (Neg-Trace) mg/dL Urine Ketones Negative (Negative) mg/dL Urine Blood Negative (Negative) Urine Nitrite Negative (Negative) Urine Bilirubin Negative (Negative) Urine Urobilinogen 0.2 (Up to 0.2) mg/dL Ur Leukocyte Esterase Negative (Negative) Urine Glucose Negative (Negative) mg/dL Urine Opiates Screen Negative (Negative) Urine Methadone Screen Negative (Negative) Ur Barbiturates Screen Negative (Negative) Ur Tricyclics Screen Negative (Negative) Ur Amphetamines Screen Negative (Negative) U Benzodiazepines Scrn Negative (Negative) Urine Cocaine Screen Negative (Negative) Ur THC Screen Negative (Negative) Add-On Test Request [id number] Documentation POC Urine Test Start: 05/06/25 16:56 Freq: .Urine Test Status: Active Protocol: Activity Type Activity Date Activity User E-sign Co-sign Detail Recorded Client Recorded Date Recorded By Document 05/06/25 18:18 AP [id number] 05/06/25 18:18 AP Intake and Output - 24 Hour Total 05/06/25 16:24 thru 05/06/25 16:27 Weight 79.5 kg Falls Risk Assessment History of Falls No History 05/06/25 18:17 Contributing Factors No Factors 05/06/25 18:17 Tubes/Lines None 05/06/25 18:17 Gait Evaluation No gait disturbance 05/06/25 18:17 Cognition No cognitive impairment 05/06/25 18:17 Fall Total Score 0 05/06/25 18:17 Level of Risk Standard/Low Risk 05/06/25 18:17 Problems (Last Reviewed 05/06/25 @ 19:35 by Darvin Blas) Hypertensive emergency (Acute) v v v v v v v v v Sending and/or Receiving Nurses: Please use comment section below to note any information pertinent to the patient hand-off not included above. Information / Comments: Report received from: Trena Newell
[2025-05-06 22:03] LABS: Lab Add On Test DONE
[2025-05-06] MEDS: Labetalol 100 MG TAB 200 MG PO (22:14)
[2025-05-06 22:23] LABS: TSH (W/Ref FT4) 5.28 uIU/mL (0.36-3.74)
[2025-05-06] MEDS: traZODone 50 MG TAB 150 MG PO (23:12)
[2025-05-07 00:38] LABS: Glucose Negative (Negative)
[2025-05-07 05:23] VITALS: BP 119/70; PULSE 92; RESP 17; TEMP 36.8; O2SAT 100
[2025-05-07 07:04] VITALS: BP 126/76; PULSE 82; TEMP 36.6; O2SAT 97
[2025-05-07 07:12] LABS: HCT 32.1 % (36.0-46.0); HGB 10.8 g/dL (11.2-15.7); MCH 29.8 pg (27.0-33.0); MCHC 33.6 % (32.0-36.0); MCV 89 fL (80-95); MPV 10.1 fL (8.0-11.0); Platelet Count 303 10^3/uL (130-400); RBC 3.62 10^6/uL (3.93-5.22); RDW 12.3 % (11.7-14.6); RDW-SD 39.7 fL; WBC 6.98 10^3/uL (4.4-10.8)
[2025-05-07 07:17] LABS: ESR 10 mm/hr (0-20)
[2025-05-07 07:28] LABS: ALT 30 U/L (14-59); AST 21 U/L (15-37); Albumin 3.1 g/dL (3.4-5.0); Alkaline Phosphatase 78 U/L (46-116); Anion Gap 7.8 mmol/L (3-11); BUN 11 mg/dL (7-18); Bilirubin, Total 0.3 mg/dL (0.2-1.0); CO2 27.2 mmol/L (21.0-32.0); Calcium 8.8 mg/dL (8.5-10.1); Chloride 106 mmol/L (98-107); Estimated GFR 86.03 (mL/min/1.73m2); Glucose 96 mg/dL (74-106); Potassium 3.4 mmol/L (3.5-5.1); Sodium 141 mmol/L (136-145); Total Protein 6.4 g/dL (6.4-8.2)
[2025-05-07] MEDS: Labetalol 100 MG TAB 200 MG PO ×2 (09:07→22:08)
[2025-05-07] MEDS: amLODIPine 5 MG TAB PO (09:08)
[2025-05-07] MEDS: Chlorthalidone 25 MG TAB 12.5 MG PO (09:08)
[2025-05-07] MEDS: Normal Saline Flush 10 ML SYR IVP ×2 (09:09→21:00)
[2025-05-07 09:39] LABS: HCG Qual (Urine) Negative
--- NOTE | 2025-05-07 10:21 | INITIAL_ITS ---
Date of service: 05/07/25 Time of Service: 10:21 Care Management Initial Assmt Initial Assessment Reason for Hospitalization: hypertension Functional Status/Living Situation Patient Presentation: Meghna presented to the ER yesterday evening with c/o elevated blood pressure, right sided head-ache, and right sided posterior rib pain. Her symptoms started the day prior with a right jain headache and a BP of 205/151. She vomited due to the headache. Yesterday, she woke with a headache and experienced some right sided stabbing chest pain. Of note, Meghna is managing her BP with 3 meds - labetalol, hydralazine and cloidine(PRN). She had an appointment with her PCP 3 weeks ago, and reported checking her BP daily since, and it has been high since. Meghna was lying in bed when CM met with her today. She was very pleasant. She is known to and we had a very talk. She has been struggling with her blood pressure for quite some, and the headache yesterday was just too much. Meghna has a 4yo daughter and a 3 yo son who are being cared for by her parents during the day while her partner is at work. 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.) Instrumental Activities of Daily Living (ADLs): Independent Medications Medication Management: No Issues/Barriers identified Advance Directives Advance Directives: Do you have an Advance Directive: N , 15:51 AD On File at [facility]: N 02/21/22, 15:51 Date Asked 05/06/25 05/06/25, 16:36 AD Date Reviewed COLST On File at [facility] No 05/06/25, 16:36 COLST Date Scanned Code Status Resuscitation Status Full Code Insurance Coverage/Financial Issues Insurance: /[facility] Care Team Visit Care Team Role Provider Type Neo Mak MD [facility] STAFF PHYSICIAN Theresa Trejo Primary Care Provider NON-[facility] STAFF PHYSICIAN Hilda Helm Emergency Provider NURSE PRACTITIONER Darvin Blas Admit Provider NON-[facility] STAFF PHYSICIAN Attending Provider Discharge Potential Discharge Needs: PCP F/U Appt Anticipated Barriers to Discharge: None Identified Patient/Family Education Needs: Review discharge instructions, discuss Ask Me Three Transportation: Private vehicle Plan: Anticipate that Meghna will discharge home, possibly this afternoon, with no new services. She will f/u with her PCP and continue per her plan of care. Meghna will transport home in a private vehicle. CM will continue to follow. Social Determinants of Health Screening Social Determinants of health last assessed in clinic: 05/07/25 Will the Patient Participate in the Screening?: Yes Do you worry about having a steady place to live?: no Problems where you live: no known problems In the past 12 months, have you had to go without electric, gas, oil or water in your home?: no 1. Within the past 12 months, we worried whether our food would run out before we got money to buy more.: Never true 2. Within the past 12 months, the food we bought just didn't last and we didn't have money to get more.: Never true Has lack of transportation kept you from medical appointments or from doing things needed for daily living?: no Has anyone in your life made you feel unsafe or unsupported?: no How hard is it for you to pay for the very basics like food, housing, medical care, and heating? Would you say it is:: Not hard at all Do you want help finding or keeping work or a job?: I do not need or want help If for any reason you need help with day-to-day activities such as bathing, preparing meals, shopping, managing finances, etc., do you get the help you need?: I don?t need any help How often do you feel lonely or isolated from those around you?: Never Do you speak a language other than Kiswahili at home?: Yes Does the patient want assistance with any of the above?: No Comments: Azeri and French Creole Health Related Social Needs Health related social needs: education (Z55.6) PFSH All Active Problems (Updated 05/07/25 @ 17:16 by Neo Mak) Flank pain (Acute) Right upper lobe pulmonary nodule (Acute) Elevated TSH (Acute) Hypokalemia (Acute) Depression (Chronic) GERD (gastroesophageal reflux disease) (Chronic) Lung nodule seen on imaging study (Acute) Hypertensive emergency (Acute) Depot contraception (Acute) DepoProvera inj q 3mo. Sleep walking (Acute) While taking ambien - normal sleep study 09/2019 BMI 30.0-30.9,adult (Acute) Medical History Essential hypertension MRSA (methicillin resistant Staphylococcus aureus) infection Vulvar abscess 04/2018. Rx with Bactrim. Surgical History History of section Family History Mother Essential hypertension Hyperlipidemia Stroke Maternal Aunt Breast cancer at 52 Social History Smoking/Tobacco Use Status: Never Second Hand Exposure: Yes Smoking risk assessment performed?: Yes Alcohol Intake: former Drug use: Never Substance use type: does not use Adopted: No Foster care: No Household members: significant other Housing: house What is your relationship status?: living with partner Panel score (0-1 are the most socially isolated patients): 1 What type of physical activity do you participate in: walking Duration: 30-45 minutes/day Frequency: other Details: 2-3 X MONTH Nesha/Christian: ROMAN CATHOLIC Seatbelt use: always Do you feel safe at home: Yes Do you feel safe in your relationship?: Yes Female Reproductive History Menstrual control method: progesterone injection History History 0 Para Hx # Term Pregnancies Multiple births Hx # Pregnancies Ectopic pregnancies AB induced Hx Number of Living Children AB spontaneous
[2025-05-07 11:28] VITALS: BP 151/95; PULSE 78; RESP 16; TEMP 36.7; O2SAT 98
[2025-05-07 13:33] VITALS: BP 126/59; PULSE 90
[2025-05-07 15:17] VITALS: BP 141/96; PULSE 87; RESP 16; TEMP 36.9; O2SAT 98
[2025-05-07 15:34] LABS: COMMENT (LAB VIEW ONLY) 38.82 mg/dL; Microalb ug/mg Crea 39.2 ug/mg Cr
[2025-05-07] MEDS: Ketorolac 15 MG/ML VIAL IVP (16:06)
--- NOTE | 2025-05-07 17:00 | PGE_ITS ---
Date of Service Date of service: 05/07/25 Time of Service: 17:00 Assessment and Plan Assessment and plan (1) Hypertensive emergency: Start date: 05/06/25 Status: Acute Assessment and plan: Severe HTN and new headache on admission. Improved, hasn't needed IV during the day. continue to monitor (2) Essential hypertension: Assessment and plan: Uncontrolled, on three agents, but no first line agents so not techynically treatment resistent. Clonidine and hydralyzine a/w rebound HTN. I reviewed notes from PCP and Cardiology at [facility]. Complicated by reproductive potential, thought not desiring now. 24-hour urine for catecholamines ordered, with low K+ also send PRA and aldosterone. cardiology gave CLD but went right to high dose and she didn't tolerate 50mg. Start at 12.5mg Was on losartan, but need contraception to use this. Start amlodipine. Cut hydralyzine, taper off this. Continue labetolol. (3) Hypokalemia: Start date: 05/06/25 Status: Acute Assessment and plan: This may be nutritional, also could be aldosterone excess. Labs pending. (4) Elevated TSH: Start date: 05/06/25 Status: Acute Assessment and plan: TSH is mildly elevated compared to previous measurements with low free T4. I don't think this is related to her HTN, follow as an outpatient. (5) GERD (gastroesophageal reflux disease): Status: Chronic Assessment and plan: Continue famotidine. (6) Right upper lobe pulmonary nodule: Start date: 05/06/25 Status: Acute Assessment and plan: Less than 2 cm right upper lobe nodule noted on CT further evaluation and reimaging as appropriate the patient having 24-hour urine for catecholamine measurement. (7) Depression: Status: Chronic Assessment and plan: Continue outpatient therapy. Patient does take trazodone at night for sleep but not working well. Requested lorazepam tonight. Can use zolpidem x 1 (8) Flank pain: Status: Acute Assessment and plan: Normal u/a. Pain seems to be skin hyperalgesia rather than MSK, GI, or . No signs zoster on skin. Ketoralac helped. continue to monitor. Subjective Subjective Patient reports: tolerating a regular diet and voiding w/o difficulty; denies nausea, vomiting, shortness of breath or fever Interval history since last seen: Headache dull, better but still there. Right flank achy pain has been there for a week. No association with urination or BM. Hurts to lay on that side. Exam Narrative Exam Narrative: GEN: alert and oriented, NAD Lungs: CTAB, nl effort CV: RRR, no M/G/R abd: soft, NT/ND Ext: non tender, no edema. skin: no rash/blisters, skin right flank tender to light touch Neuro: CN intact, nl strength and sensation, no tremor. Objective Last Vital Signs Temp 36.9 C 05/07/25 15:17 Pulse 87 05/07/25 15:17 Resp 16 05/07/25 15:17 BP 141/96 H 05/07/25 15:17 Pulse Ox 98 05/07/25 15:17 Laboratory Results - last 24 hr 05/06/25 05/06/25 05/06/25 16:50 16:50 16:50 WBC RBC Hgb Hct MCV MCH MCHC RDW Plt Count MPV Immature Gran % Neutrophils % Lymphocytes % Monocytes % Eosinophils % Basophils % Nucleated RBC % Absolute Neutrophils Absolute Lymphocytes Absolute Monocytes Absolute Eosinophils Absolute Basophils ESR Sodium Potassium Chloride Carbon Dioxide Anion Gap BUN Creatinine Est GFR (CKD-EPI 2020) Glucose Calcium Magnesium Total Bilirubin AST ALT Alkaline Phosphatase Troponin I NT-Pro-B Natriuret Pep Total Protein Albumin TSH Free T4 Urine Color Yellow Yellow Urine Clarity Clear Clear Urine pH 7.0 Ur Specific [place] Urine Protein Urine Ketones Urine Blood Urine Nitrite Urine Bilirubin Urine Urobilinogen Ur Leukocyte Esterase Ur Creatinine mg/dL Ur Microalbumin mg/L Microalb/Creat Ratio Urine Glucose Urine HCG, Qual Urine Opiates Screen Urine Methadone Screen Ur Barbiturates Screen Ur Tricyclics Screen Ur Amphetamines Screen U Benzodiazepines Scrn Urine Cocaine Screen Ur THC Screen Add-On Test Request 05/06/25 05/06/25 05/06/25 16:50 16:50 16:50 WBC RBC Hgb Hct MCV MCH MCHC RDW Plt Count MPV Immature Gran % Neutrophils % Lymphocytes % Monocytes % Eosinophils % Basophils % Nucleated RBC % Absolute Neutrophils Absolute Lymphocytes Absolute Monocytes Absolute Eosinophils Absolute Basophils ESR Sodium Potassium Chloride Carbon Dioxide Anion Gap BUN Creatinine Est GFR (CKD-EPI 2020) Glucose Calcium Magnesium Total Bilirubin AST ALT Alkaline Phosphatase Troponin I NT-Pro-B Natriuret Pep Total Protein Albumin TSH Free T4 Urine Color Urine Clarity Urine pH 7.0 Ur Specific [place] 1.010 1.010 Urine Protein Negative Negative Urine Ketones Negative Urine Blood Urine Nitrite Urine Bilirubin Urine Urobilinogen Ur Leukocyte Esterase Ur Creatinine mg/dL Ur Microalbumin mg/L Microalb/Creat Ratio Urine Glucose Urine HCG, Qual Urine Opiates Screen Urine Methadone Screen Ur Barbiturates Screen Ur Tricyclics Screen Ur Amphetamines Screen U Benzodiazepines Scrn Urine Cocaine Screen Ur THC Screen Add-On Test Request 05/06/25 05/06/25 05/06/25 16:50 16:50 16:50 WBC RBC Hgb Hct MCV MCH MCHC RDW Plt Count MPV Immature Gran % Neutrophils % Lymphocytes % Monocytes % Eosinophils % Basophils % Nucleated RBC % Absolute Neutrophils Absolute Lymphocytes Absolute Monocytes Absolute Eosinophils Absolute Basophils ESR Sodium Potassium Chloride Carbon Dioxide Anion Gap BUN Creatinine Est GFR (CKD-EPI 2020) Glucose Calcium Magnesium Total Bilirubin AST ALT Alkaline Phosphatase Troponin I NT-Pro-B Natriuret Pep Total Protein Albumin TSH Free T4 Urine Color Urine Clarity Urine pH Ur Specific [place] Urine Protein Urine Ketones Negative Urine Blood Negative Negative Urine Nitrite Negative Negative Urine Bilirubin Negative Urine Urobilinogen Ur Leukocyte Esterase Ur Creatinine mg/dL Ur Microalbumin mg/L Microalb/Creat Ratio Urine Glucose Urine HCG, Qual Urine Opiates Screen Urine Methadone Screen Ur Barbiturates Screen Ur Tricyclics Screen Ur Amphetamines Screen U Benzodiazepines Scrn Urine Cocaine Screen Ur THC Screen Add-On Test Request 05/06/25 05/06/25 05/06/25 16:50 16:50 16:50 WBC RBC Hgb Hct MCV MCH MCHC RDW Plt Count MPV Immature Gran % Neutrophils % Lymphocytes % Monocytes % Eosinophils % Basophils % Nucleated RBC % Absolute Neutrophils Absolute Lymphocytes Absolute Monocytes Absolute Eosinophils Absolute Basophils ESR Sodium Potassium Chloride Carbon Dioxide Anion Gap BUN Creatinine Est GFR (CKD-EPI 2020) Glucose Calcium Magnesium Total Bilirubin AST ALT Alkaline Phosphatase Troponin I NT-Pro-B Natriuret Pep Total Protein Albumin TSH Free T4 Urine Color Urine Clarity Urine pH Ur Specific [place] Urine Protein Urine Ketones Urine Blood Urine Nitrite Urine Bilirubin Negative Urine Urobilinogen 0.2 0.2 Ur Leukocyte Esterase Negative Negative Ur Creatinine mg/dL 38.82 Ur Microalbumin mg/L 15.2 Microalb/Creat Ratio 39.2 Urine Glucose Negative Urine HCG, Qual Urine Opiates Screen Urine Methadone Screen Ur Barbiturates Screen Ur Tricyclics Screen Ur Amphetamines Screen U Benzodiazepines Scrn Urine Cocaine Screen Ur THC Screen Add-On Test Request 05/06/25 05/06/25 05/06/25 16:50 17:32 18:40 WBC 8.68 RBC 3.78 L Hgb 11.4 Hct 33.1 L MCV 88 MCH 30.2 MCHC 34.4 RDW 12.0 Plt Count 311 MPV 9.7 Immature Gran % 0.3 Neutrophils % 56.6 Lymphocytes % 31.6 Monocytes % 8.3 Eosinophils % 2.9 Basophils % 0.3 Nucleated RBC % 0.0 Absolute Neutrophils 4.91 Absolute Lymphocytes 2.74 Absolute Monocytes 0.72 Absolute Eosinophils 0.25 Absolute Basophils 0.03 ESR Sodium 139 Potassium 3.0 L Chloride 103 Carbon Dioxide 28.3 Anion Gap 7.7 BUN 8 Creatinine 0.8 Est GFR (CKD-EPI 2020) 99.09 Glucose 106 Calcium 9.1 Magnesium 1.9 Total Bilirubin 0.3 AST 21 ALT 31 Alkaline Phosphatase 92 Troponin I 16 16 NT-Pro-B Natriuret Pep 115 Total Protein 7.0 Albumin 3.4 TSH 5.28 H Free T4 0.74 L Urine Color Urine Clarity Urine pH Ur Specific [place] Urine Protein Urine Ketones Urine Blood Urine Nitrite Urine Bilirubin Urine Urobilinogen Ur Leukocyte Esterase Ur Creatinine mg/dL Ur Microalbumin mg/L Microalb/Creat Ratio Urine Glucose Negative Urine HCG, Qual Urine Opiates Screen Negative Urine Methadone Screen Negative Ur Barbiturates Screen Negative Ur Tricyclics Screen Negative Ur Amphetamines Screen Negative U Benzodiazepines Scrn Negative Urine Cocaine Screen Negative Ur THC Screen Negative Add-On Test Request DONE 05/06/25 05/07/25 05/07/25 19:56 06:00 09:14 WBC 6.98 RBC 3.62 L Hgb 10.8 L Hct 32.1 L MCV 89 MCH 29.8 MCHC 33.6 RDW 12.3 Plt Count 303 MPV 10.1 Immature Gran % Neutrophils % Lymphocytes % Monocytes % Eosinophils % Basophils % Nucleated RBC % Absolute Neutrophils Absolute Lymphocytes Absolute Monocytes Absolute Eosinophils Absolute Basophils ESR 10 Sodium 141 Potassium 3.4 L Chloride 106 Carbon Dioxide 27.2 Anion Gap 7.8 BUN 11 Creatinine 0.9 Est GFR (CKD-EPI 2020) 86.03 Glucose 96 Calcium 8.8 Magnesium Total Bilirubin 0.3 AST 21 ALT 30 Alkaline Phosphatase 78 Troponin I Cancelled NT-Pro-B Natriuret Pep Total Protein 6.4 Albumin 3.1 L TSH Free T4 Urine Color Urine Clarity Urine pH Ur Specific [place] Urine Protein Urine Ketones Urine Blood Urine Nitrite Urine Bilirubin Urine Urobilinogen Ur Leukocyte Esterase Ur Creatinine mg/dL Ur Microalbumin mg/L Microalb/Creat Ratio Urine Glucose Urine HCG, Qual Negative Urine Opiates Screen Urine Methadone Screen Ur Barbiturates Screen Ur Tricyclics Screen Ur Amphetamines Screen U Benzodiazepines Scrn Urine Cocaine Screen Ur THC Screen Add-On Test Request PAWSS Have you Been Recently Intoxicated or Drunk Within the Last 30 days?: No Have you Ever Experienced Previous Episodes of Alcohol Withdrawal?: No Have you ever Experienced Withdrawal Seizures?: No Have you ever Experienced Delirium Tremens(DT)s?: No Have you ever undergone Alcohol Rehabilitation Treatment (i.e, inpt ot outpatient treatment programs)?: No Have you ever Experienced Blackouts?: No Have you ever Combined Alcohol with other Downers within the last 90 days?: No Have you ever Combined Alcohol with any other Substance of Abuse during the last 90 days?: No Positive Blood Alcohol level on Presentation? [PCS.BAL]: No Evidence of Increased Autonomic Activity (i.e. HR>120, tremor, sweating, agitation, nausea)?: No Result: 0 Time Spent with Patient Time Spent with Patient: 35-49 minutes Time was spent: preparing to see the patient(eg.review tests), obtaining and/or reviewing separately otained hiistory, ordering medications,tests, procedures, referring, communicating with other health day care provider, indepentently interpreting results, counseling the patient and care coordination
[2025-05-07 19:00] VITALS: BP 139/87; PULSE 90; RESP 16; TEMP 36.7; O2SAT 100
[2025-05-07] MEDS: traZODone 50 MG TAB 150 MG PO (21:30)
[2025-05-07] MEDS: Diclofenac 1% Gel 100 GM TUBE TP (21:32)
[2025-05-08] VITALS (7 sets, daily range): BP systolic 130–138; BP diastolic 78–93; PULSE 86–98; RESP 16–17; TEMP 36.4–36.7; O2SAT 98–100
[2025-05-08 06:31] LABS: HCT 31.8 % (36.0-46.0); HGB 10.7 g/dL (11.2-15.7); MCH 30.5 pg (27.0-33.0); MCHC 33.6 % (32.0-36.0); MCV 91 fL (80-95); MPV 9.6 fL (8.0-11.0); Platelet Count 281 10^3/uL (130-400); RBC 3.51 10^6/uL (3.93-5.22); RDW 12.6 % (11.7-14.6); RDW-SD 41.1 fL; WBC 6.33 10^3/uL (4.4-10.8)
[2025-05-08 07:02] LABS: ALT 27 U/L (14-59); AST 17 U/L (15-37); Albumin 2.9 g/dL (3.4-5.0); Alkaline Phosphatase 71 U/L (46-116); Anion Gap 6.4 mmol/L (3-11); BUN 15 mg/dL (7-18); Bilirubin, Total 0.2 mg/dL (0.2-1.0); CO2 29.6 mmol/L (21.0-32.0); Calcium 8.9 mg/dL (8.5-10.1); Chloride 105 mmol/L (98-107); Estimated GFR 67.62 (mL/min/1.73m2); Glucose 106 mg/dL (74-106); Potassium 4.1 mmol/L (3.5-5.1); Sodium 141 mmol/L (136-145); Total Protein 6.2 g/dL (6.4-8.2)
[2025-05-08] MEDS: Chlorthalidone 25 MG TAB 12.5 MG PO (08:10)
[2025-05-08] MEDS: amLODIPine 5 MG TAB PO (08:11)
[2025-05-08] MEDS: Famotidine 20 MG TAB 40 MG PO (08:11)
[2025-05-08] MEDS: Sertraline 25 MG TAB PO (08:11)
[2025-05-08] MEDS: Labetalol 100 MG TAB 200 MG PO (08:11)
[2025-05-08] MEDS: Normal Saline Flush 10 ML SYR IVP (08:12)
[2025-05-08] MEDS: Diclofenac 1% Gel 100 GM TUBE TP ×2 (08:19→12:24)
--- NOTE | 2025-05-08 11:43 | W.PM.DS.N ---
Date of service: 05/08/25 Time of Service: 11:44 DS: Diagnosis Discharge Diagnosis (1) Hypertensive emergency: Status: Acute (2) Essential hypertension: (3) Hypokalemia: Status: Acute (4) Elevated TSH: Status: Acute (5) GERD (gastroesophageal reflux disease): Status: Chronic (6) Right upper lobe pulmonary nodule: Status: Acute (7) Depression: Status: Chronic (8) Flank pain: Status: Acute Discharge Plan Disposition Patient Disposition: Home Condition: Good Discharge Details Reason For Visit: uncontrolled hypertension w/hypertensive emergency Admit Date/Time: 05/06/25 19:46 Admit Provider: Darvin Blas Attending Provider: Darvin Blas Primary Care Provider: Danial Saha Hospital Course Hospital Course: 34 yo F with history of labile hypertension that presented with headache, right flank pain, and blood pressures over 200/130 and was admitted for hypertensive emergency. She received IV labetolol and hydralyzine overnight the first night to control the blood pressure. Her headache improved and her blood pressure remained stable in slightly elevated range. Her history was reviewed including PCP and cardiology consult records. She was not on standart therapy so technically does not have resistent hypertension. Her management has been complicated by her child bearing age and consideration of . After discussion, amlodipine was started. Chlorthalidone had been recommended by cardiology but was started at 50mg and she did not tolerate it. It was resumed at 12.5mg. Clonidine was stopped due to its association with labile blood pressure. Hydralyzine was decreased to 25mg with a plan to discontinue after titrating up other therapy as with TID dosing hydralyzine is difficult to take and has outcomes inferior to standard therapy. Labetolol was continued at an increased dose of 200mg BID. 24hr urine for catecholamines was sent, as was plasma renin activity and aldosterone. Her potassium was running low before chlorthalidone was started. We did discuss using ELEAZAR agents and possibly MRA such as spironolactone, but she would need reliable contraception. Estrogen should be avoided with her HTN. Depo provera has failed in the past. We discussed IUD vs nexplanon and she is interested in Nexplanon. She had right flank pain and hyperalgesia in the area. Diclofenac gel helped a lot. 3% gel was given, though 1% was recommended for ongoing use. There was no rash to suggest zoster. CT on admission showed a lung nodule. This will need f/u imaging. Recommendations for Follow Up Recommended tests to be ordered by follow up provider: BMP 1 week with PCP follow up follow up results of send out labs Consider treating hypothyroid or repeating TSH/reflex in 2-3 months to confirm low thyroid Follow up lung nodule Home Meds and New Rx's Prescriptions: New diclofenac sodium 3 % Gel 1 g topical QID Qty: 100 0RF chlorthalidone 25 mg Tablet 12.5 mg PO DAILY Qty: 45 0RF amlodipine 5 mg Tablet 5 mg PO DAILY Qty: 30 2RF sertraline 25 mg Tablet 25 mg PO DAILY Qty: 0 0RF labetalol 200 mg tablet 200 mg PO BID Qty: 60 1RF Rx Instructions: increase dose Continued trazodone 50 mg tablet 100 mg PO DAILY Rx Instructions: take 2 tabs by mouth at bedtime as needed for insomnia Changed hydralazine 25 mg tablet 25 mg PO TID Qty: 0 0RF Discontinued labetalol 100 mg tablet 100 mg PO BID clonidine HCl 0.1 mg tablet 0.1 mg PO TID PRN Patient Comments: 07/07/24 per PCP med list take for BP >150/100 RH Discharge Instructions Instructions: High blood pressure emergencies Additional Instructions: Your blood pressure medications were adjusted as above. You can use the diclofenac cream for pain, but the 1% cream (which is also available over the counter) is the recommended potency for pain Your PCP should continue to adjust your blood pressure medications. If you get reliable control, such as Nexplanon, you will have more options for treating the blood pressure. Your thyroid levels were slightly low. Your PCP may recommend treating this or possibly repeating levels first. You have a nodule in your lungs and will need repeat CT scan If you don't have one, get a simple automatic blood pressure cuff to monitor your blood pressure at home. Activity:: Activity as Tolerated Equipment/Supplies:: No Equipment Needed Diet:: Low Sodium Discharge Orders Discharge Orders: Discharge Order (Routine); Ordered 05/08/25 Ordered By: Neo Mak DS: Summary Time Spent with Patient providing and/or coordinating discharge services: Greater than 30 minutes Status at Discharge Functional status at discharge: independent ambulation Overall status at discharge: patient is back to baseline Mental Status: mental status grossly normal Speech and Movement: speech and movement normal Mood: congruent mood Affect: normal affect Quality:SDOH Health Related Social Needs: Health related social needs education Exam Narrative Exam Narrative: GEN: alert and oriented, NAD Lungs: CTAB, nl effort CV: RRR, no M/G/R abd: soft, NT/ND Ext: non tender, no edema. skin: no rash/blisters, skin right flank tender to light touch Neuro: no tremor. Psych Mental Status: mental status grossly normal Speech and Movement: speech and movement normal Mood: congruent mood Affect: normal affect DS: Data Vitals/I&O Vitals and I&O: Vital Signs Temperature 36.4 C L 05/08/25 07:10 Temperature Source Temporal Artery Scan 05/08/25 07:10 Pulse 98 H 05/08/25 07:10 Pulse 92 H 05/06/25 21:17 Respiratory Rate 17 05/08/25 07:10 Respiratory Effort Normal 05/06/25 21:35 Respiratory Depth Normal 05/06/25 21:35 Blood Pressure 138/78 05/08/25 11:02 Blood Pressure Mean 98 05/08/25 11:02 Blood Pressure Position Sitting 05/06/25 16:27 Pulse Oximetry 100 05/08/25 07:10 Oxygen Delivery Method Room Air 05/08/25 11:02 Oxygen Flow Rate 0 05/08/25 11:02 Pain Level 0 05/08/25 07:10 Intake & Output 05/07/25 05/07/25 05/08/25 11:59 23:59 11:59 Intake Total 760 / 770 10 / 770 Output Total 0 / 0 Balance 760 / 770 10 / 770 Weight 79.3 kg Intake: IV Oral 750 / 750 Output: Emesis 0 / 0 Other: Urine Appearance Clear Urine Odor None Comment 24 hour urine in progress Emesis Description None Data Completed and Pending Labs on day of discharge: Labs from last 24 hours 05/08/25 05/07/25 05/06/25 06:00 22:30 16:50 WBC 6.33 RBC 3.51 L Hgb 10.7 L Hct 31.8 L MCV 91 MCH 30.5 MCHC 33.6 RDW 12.6 Plt Count 281 MPV 9.6 Sodium 141 Potassium 4.1 Chloride 105 Carbon Dioxide 29.6 Anion Gap 6.4 BUN 15 Creatinine 1.1 H Est GFR (CKD-EPI 2020) 67.62 Glucose 106 Calcium 8.9 Total Bilirubin 0.2 AST 17 ALT 27 Alkaline Phosphatase 71 Total Protein 6.2 L Albumin 2.9 L Ur Collection Duration Pending Urine Total Volume Pending Ur Creatinine mg/dL 38.82 Ur Microalbumin mg/L 15.2 Microalb/Creat Ratio 39.2 Urine Epinephrine Pending Urine Norepinephrine Pending Urine Dopamine Pending PFSH All Active Problems Flank pain (Acute) Right upper lobe pulmonary nodule (Acute) Elevated TSH (Acute) Hypokalemia (Acute) Depression (Chronic) GERD (gastroesophageal reflux disease) (Chronic) Lung nodule seen on imaging study (Acute) Hypertensive emergency (Acute) Sleep walking (Acute) While taking ambien - normal sleep study 09/2019 BMI 30.0-30.9,adult (Acute) Depot contraception (Acute) DepoProvera inj q 3mo. Medical History Essential hypertension MRSA (methicillin resistant Staphylococcus aureus) infection Vulvar abscess 04/2018. Rx with Bactrim. Surgical History History of section Family History Mother Essential hypertension Hyperlipidemia Stroke Maternal Aunt Breast cancer at 52 Social History Smoking/Tobacco Use Status: Never Second Hand Exposure: Yes Smoking risk assessment performed?: Yes Alcohol Intake: former Drug use: Never Substance use type: does not use Adopted: No Foster care: No Household members: significant other Housing: house What is your relationship status?: living with partner Panel score (0-1 are the most socially isolated patients): 1 What type of physical activity do you participate in: walking Duration: 30-45 minutes/day Frequency: other Details: 2-3 X MONTH Nesha/Yazdanism: [employer]ERIAN Seatbelt use: always Do you feel safe at home: Yes Do you feel safe in your relationship?: Yes Female Reproductive History Menstrual control method: progesterone injection History History 0 Para Hx # Term Pregnancies Multiple births Hx # Pregnancies Ectopic pregnancies AB induced Hx Number of Living Children AB spontaneous Time Spent with Patient Time Spent with Patient: <45 minutes Time was spent: preparing to see the patient(eg.review tests), obtaining and/or reviewing separately otained hiistory, ordering medications,tests, procedures, referring, communicating with other health patient care technician instructor, indepentently interpreting results, counseling the patient and care coordination
--- NOTE | 2025-05-08 11:58 | W.NUTRFU ---
Date of service: 05/08/25 Time of Service: 11:58 Nutrition Note NOTE: Chart reviewed Pt at lower nutrition risk at initial nutrition assessment. BMI indicates class 2 obesity. Wt loss would be encouraged to mitigate possible health detriments from metabolic effects of chronic obesity Pt anticiapted to discharge today. Will remain available for outpatient nutrition services Time Spent in Nutritional Counseling and Treatment: 0
--- NOTE | 2025-05-08 12:03 | PDOC.CMDIS ---
Date of service: 05/08/25 Time of Service: 12:03 LACE Index Scoring Tool Questions: Length of Stay (in days): 2 Was the patient admitted via the E.D.?: Yes E.D. Visits: 2 Answers: Total Score: 7 Risk of Readmission: Low Risk Care Management Discharge Plan Reason for Hospitalization: hypertensive crisis Discharge Plan: Meghna will be discharged home this afternoon with no home care services. She will f/u with her PCP on 05/19, and continue per her plan of care. Meghna was given a return to work note. She will transport home with her . Patient/Family Education Needs: Review of discharge instructions, activity, limitations and discuss Ask me 3. SDOH Health Related Social Needs: Health related social needs education
[2025-05-08] MEDS: Polyethylene Glycol 3350 17 GM PACKET PO (12:22)
[2025-05-08] MEDS: Docusate Sodium 100 MG CAP PO (12:22)
[2025-05-12 11:30] LABS: Renin Activity, Plasma 2.1 ng/mL/h
== END 2025-05-08 13:21 | disposition home or self-care (01) ==
LOC: ER 18:12 → MS 21:17
PROVIDERS: Admitting Provider Family Medicine; Emergency Provider Nurse Practitioner Family; PCP Student in an Organized Health Care Education/Training Program; Responsible Provider Family Medicine; Visit Provider Family Medicine
DX: I16.1 Hypertensive emergency (principal); R51.9 Headache, unspecified; I10 Essential (primary) hypertension; E87.6 Hypokalemia; F32.A Depression, unspecified; Z79.899 Other long term (current) drug therapy; R91.1 Solitary pulmonary nodule; R07.82 Intercostal pain; K21.9 Gastro-esophageal reflux disease without esophagitis; R79.89 Other specified abnormal findings of blood chemistry
CPT/HCPCS: 00123; 36415; 71275; 80053; 80307; 81025; 85027; 85652; 93005; 96374; 96375; 96376; 99285; J1650; 70450; 81003; 81050; 82043; 82088; 82384; 82570; 83735; 83880; 84244; 84439; 84443; 84484; 85025; 93010; 99223; 99232; 99238; G0378; J0360; J1885; J1920; J3490

== ENCOUNTER 2025-05-19 17:45 | Outpatient (REF) | payer BC, SELFPAY ==
[2025-05-19 19:30] LABS: Anion Gap 8.5 mmol/L (3-11); BUN 10 mg/dL (7-18); CO2 27.5 mmol/L (21.0-32.0); Calcium 9.5 mg/dL (8.5-10.1); Chloride 102 mmol/L (98-107); Estimated GFR 86.03 (mL/min/1.73m2); Glucose 98 mg/dL (74-106); Potassium 3.8 mmol/L (3.5-5.1); Sodium 138 mmol/L (136-145); TSH 3.18 uIU/mL (0.36-3.74)
== END 2025-05-19 17:46 | disposition home or self-care (01) ==
LOC: NCHCN 17:45
PROVIDERS: PCP Student in an Organized Health Care Education/Training Program; Visit Provider Physician Assistant
DX: I10 Essential (primary) hypertension (principal); E03.9 Hypothyroidism, unspecified
CPT/HCPCS: 80048; 84439; 84443